=== PATIENT | male | born 1960 | race Caucasian/White ===

== ENCOUNTER → 2017-11-22 | Outpatient (CLI) | payer BC ==
--- NOTE | 2017-11-22 13:32 | XR ---
EXAMINATION TYPE: XR foot complete LT DATE OF EXAM: 11/22/2017 COMPARISON: NONE HISTORY: 57 year-old male left foot pain, dorsolateral pain near the fifth metatarsal for 3 months TECHNIQUE: 3 views FINDINGS: There is some enthesopathy at the base of the fifth metatarsal but no acute fracture seen. Degenerati ve changes are present at the TMT joints. There is either a type II or type III accessory navicular. Moderate sized posterior and plantar calcaneal spurs. Vascular calcifications suggest underlying diab etes and/or chronic kidney disease. IMPRESSION: 1. Some calcifications at the base of the fifth metatarsal at the peroneal insertion. Findings suspec golden to represent enthesopathy. Calcific tendinitis is an alternative possibility. Otherwise, no acute osseous abnormality seen. 2.Osteoarthritic changes within the midfoot and plantar calcaneal spurs.
== END | disposition home or self-care (01) ==
LOC: RADXRMAIN 10:25
PROVIDERS: ATTEND Internal Medicine Geriatric Medicine
DX: M19.072 Primary osteoarthritis, left ankle and foot (principal); M77.32 Calcaneal spur, left foot

== ENCOUNTER 2024-02-25 03:11 | Emergency (ER) | payer BC ==
--- NOTE | 2024-02-25 03:30 | ED ---
General Adult HPI - General Chief complaint: Syncope Stated complaint: Syncopal Time Seen by Provider: 02/25/24 03:15 Source: patient, EMS, RN notes reviewed, old records reviewed Mode of arrival: EMS - History of Present Illness Initial comments: Patient is a 63-year-old male who presents emergency department for syncopal episode. Patient apparently had 2 syncopal episodes. He does note one and is uncertain regarding the other. States he stood up to use the restroom and walked a short distance away. He appeared to have fainted during his urination. He woke up on the ground on his side. No obvious injuries. States he woke up and walked back to the bedroom. There his states he may have passed out again but he is uncertain as he feels like he may have just fallen asleep again. However EMS was called and he presents for further evaluation. He denies any complaints at this time. Denies chest pain or shortness of breath. Denies any head injury, headache, blurry vision, weakness. Denies shortness of breath, fevers, chills, abdominal pain, nausea, vomiting. Has no acute complaints at this time. Denies having any symptoms prior to these episodes. Is not on blood thinners. Presents for further evaluation at this time. Past medical history remarkable for hypertension.Patient does have a history of diabetes and sugars were within acceptable limits. - Related Data Allergies Allergy/AdvReac Type Severity Reaction Status Date / Time No Known Allergies Allergy Verified 02/25/24 03:22 Review of Systems ROS Statement: Those systems with pertinent positive or pertinent negative responses have been documented in the HPI. Review of Systems: CONST: Denies fever EYES: Denies blurry vision ENT: Denies nasal congestion C/V: Denies Chest pain RESP: Denies shortness of breath GI: Denies abdominal pain : Denies dysuria SKIN: Denies rash. MSK: Denies joint pain. NEURO: Denies headache ROS Other: All systems not noted in ROS Statement are negative. Past Medical History Past Medical History: No Reported History History of Any Multi-Drug Resistant Organisms: None Reported Additional Past Surgical History / Comment(s): expolatory surgery from swallowing glass. Smoking Status: Never smoker Past Alcohol Use History: None Reported Past Drug Use History: None Reported General Exam - General Exam Comments Initial Comments: General: Appears in no acute distress. HEAD: Normal with no signs of head trauma. EYES: PERRLA, EOMI, conjunctiva normal, no discharge. Pupils are 3 mm and equal bilaterally. ENT: Hearing grossly intact, normal oropharynx. RESPIRATORY: Clear breath sounds bilaterally. No wheezes, rales, or rhonchi. C/V: Regular rate and rhythm. S1 and S2 auscultated, no edema, peripheral pulses 2+ and intact throughout ABD: Abd is soft, nontender, nondistended EXT: Normal range of motion, no obvious deformity SKIN: No rashes or lesions observed on exposed skin. NEURO: Alert and oriented x 4. Cranial nerves II-XII intact. No focal sensory or strength deficits. NIH is 0. GCS 15. Course Vital Signs 02/25/24 02/25/24 03:12 04:34 Temperature 97.1 F L Pulse Rate 58 L Respiratory 18 Rate Blood Pressure 131/77 Blood Pressure 132/78 [Right Arm Sitting] Blood Pressure 147/75 [Right Arm Standing] Blood Pressure 139/82 [Right Arm Supine] O2 Sat by Pulse 100 Oximetry Medical Decision Making - Medical Decision Making Was pt. sent in by a medical professional or institution (, PA, [employer], urgent care, hospital, or detention...) When possible be specific @ -No Did you speak to anyone other than the patient for history (EMS, parent, family, police, friend...)? What history was obtained from this source @ -No Did you review nursing and triage notes (agree or disagree)? Why? @ -I reviewed and agree with nursing and triage notes Were old charts reviewed (outside hosp., previous admission, EMS record, old EKG, old radiological studies, urgent care reports/EKG's, detention records)? Report findings @ -No old charts were reviewed Differential Diagnosis (chest pain, altered mental status, abdominal pain women, abdominal pain men, vaginal bleeding, weakness, fever, dyspnea, syncope, headache, dizziness, GI bleed, back pain, seizure, CVA, palpatations, mental health, musculoskeletal)? @ -Differential Syncope: Valvular disease, hypertrophic cardiomyopathy, pulmonary embolism, tamponade, tachycardia, bradycardia, [place], hypovolemia, hemorrhage, dissection, anemia, intracranial hemorrhage, seizure, hypoglycemia, carbon monoxide poisoning, this is not meant to be an all-inclusive list. EKG interpreted by me (3pts min.). @ -As above X-rays interpreted by me (1pt min.). @ -Chest x-ray reveals no obvious acute cardiopulmonary process. CT interpreted by me (1pt min.). @ -CT brain reveals no obvious acute intracranial process or injury. Degenerative changes present. U/S interpreted by me (1pt. min.). @ -None done What testing was considered but not performed or refused? (CT, X-rays, U/S, labs)? Why? @ -None What meds were considered but not given or refused? Why? @ -None Did you discuss the management of the patient with other professionals (professionals i.e. , PA, [employer], lab, RT, psych nurse, social security assessor, chip drier, teacher, loans officer, case resource manager)? Give summary @ -No Was smoking cessation discussed for >3mins.? @ -No Was critical care preformed (if so, how long)? @ -No Were there social determinants of health that impacted care today? How? (Homelessness, low income, unemployed, alcoholism, drug addiction, transportation, low edu. Level, literacy, decrease access to med. care, longterm, rehab)? @ -No Was there de-escalation of care discussed even if they declined (Discuss DNR or withdrawal of care, Hospice)? DNR status @ -No What co-morbidities impacted this encounter? (DM, HTN, Smoking, COPD, CAD, Can cer, CVA, ARF, Chemo, Hep., AIDS, mental health diagnosis, sleep apnea, morbid obesity)? @ -None Was patient admitted / discharged? Hospital course, mention meds given and route, prescriptions, significant lab abnormalities, going to OR and other pertinent info. @ -Presents for at least 1 and possibly 2 syncopal episodes at home prior to arrival. Seems to be somewhat related to orthostatic hypotension as well as possible micturition reflex however we will obtain syncopal workup. Did recommend CT brain. Patient was in agreement this plan. He will be symptomatically treated with IV fluids. Currently has no symptoms at all. We will obtain orthostatic vital signs. He was in agreement this plan. EKG shows no signs of acute ischemia.Imaging unremarkable for any acute process. Labs are also unremarkable. Urine is still pending at this time. On reevaluation, I updated the patient. I did offer to wait for the urine but he would like to go home. I would like to observe the patient for at least 2 hours and then ambulate the patient. Orthostatic vital signs are negative. He was in agreement this plan and remains asymptomatic at this time. Patient ambulated without issue and like to leave. I did offer him observation admission however he declines at this time. Recommended strict return precautions as well as follow-up with PCP. He was in agreement with this plan. I instructed the patient to follow up with their PCP in the next 1-3 days. I explained that the patient should return to the emergency department if they experience any worsening symptoms. Strict return precautions were discussed with the patient. The patient expressed understanding of these instructions. I answered all questions that the patient had. The patient was discharged home in good condition with their prescriptions and follow up information. Undiagnosed new problem with uncertain prognosis? @ -No Drug Therapy requiring intensive monitoring for toxicity (Heparin, Nitro, Insulin, Cardizem)? @ -No Were any procedures done? @ -No Diagnosis/symptom? @ -Syncope Acute, or Chronic, or Acute on Chronic? @ -Acute Uncomplicated (without systemic symptoms) or Complicated (systemic symptoms)? @ -Complicated Side effects of treatment? @ -None Exacerbation, Progression, or Severe Exacerbation] @ -No Poses a threat to life or bodily function? @ -Unlikely - Lab Data Result diagrams: 02/25/24 03:32 02/25/24 03:32 Lab Results 02/25/24 02/25/24 02/25/24 Range/Units 03:32 03:32 03:32 WBC 8.0 (3.8-10.6) k/uL RBC 5.26 (4.30-5.90) m/uL Hgb 13.9 (13.0-17.5) gm/dL Hct 42.5 (39.0-53.0) % MCV 80.8 (80.0-100.0) fL MCH 26.5 (25.0-35.0) pg MCHC 32.8 (31.0-37.0) g/dL RDW 13.9 (11.5-15.5) % Plt Count 222 (150-450) k/uL MPV 7.3 Neutrophils % 68 % Lymphocytes % 20 % Monocytes % 5 % Eosinophils % 4 % Basophils % 1 % Neutrophils # 5.5 (1.3-7.7) k/uL Lymphocytes # 1.6 (1.0-4.8) k/uL Monocytes # 0.4 (0-1.0) k/uL Eosinophils # 0.3 (0-0.7) k/uL Basophils # 0.0 (0-0.2) k/uL PT 11.6 (10.0-12.5) sec INR 1.1 (<1.2) APTT 22.3 (22.0-30.0) sec Sodium 137 (137-145) mmol/L Potassium 4.3 (3.5-5.1) mmol/L Chloride 107 (98-107) mmol/L Carbon Dioxide 22 (22-30) mmol/L Anion Gap 8 mmol/L BUN 20 (9-20) mg/dL Creatinine 0.91 (0.66-1.25) mg/dL Est GFR (CKD-EPI)AfAm >90 (>60 ml/min/1.73 sqM) Est GFR (CKD-EPI)NonAf 89 (>60 ml/min/1.73 sqM) Glucose 190 H (74-99) mg/dL Calcium 9.3 (8.4-10.2) mg/dL Magnesium 2.0 (1.6-2.3) mg/dL Total Bilirubin 0.7 (0.2-1.3) mg/dL AST 30 (17-59) U/L ALT 27 (4-49) U/L Alkaline Phosphatase 65 (38-126) U/L Total Protein 6.6 (6.3-8.2) g/dL Albumin 4.1 (3.5-5.0) g/dL - EKG Data -: EKG Interpreted by Me EKG Comments: 12-lead Electrocardiogram Interpretation Note EKG was reviewed and interpreted by myself. 12-lead ECG performed at 0320 is interpreted by me as revealing sinus bradycardia with first-degree AV block at a rate of 55 beats per minute. [place] is normal. NH interval is 219 ms, QRS duration is 105 ms, QTc is 370 ms.. There were no ST or T wave abnormalities to suggest myocardial ischemia or injury. R wave progression across the precordium was satisfactory. By my interpretation this EKG is non-diagnostic for acute ischemia. Disposition Clinical Impression: Syncope Disposition: HOME SELF-CARE Condition: Good Instructions (If sedation given, give patient instructions): Syncope (ED) Is patient prescribed a controlled substance at d/c from ED?: No Referrals: Sp Bolivar MD [Primary Care Provider] - 1-2 days Time of Disposition: 05:31
[2024-02-25] MEDS: SODIUM CHLORIDE 0.9% 1,000 ML IV STA (03:36)
[2024-02-25 04:09] LABS: Basophils % (A) 1 %; Eosinophils # (A) 0.3 k/uL (0-0.7); Eosinophils % (A) 4 %; HCT 42.5 % (39.0-53.0); HGB 13.9 gm/dL (13.0-17.5); Lymphocytes # (A) 1.6 k/uL (1.0-4.8); Lymphocytes % (A) 20 %; MCH 26.5 pg (25.0-35.0); MCHC 32.8 g/dL (31.0-37.0); MCV 80.8 fL (80.0-100.0); Mean Platelet Volume 7.3; Monocytes # (A) 0.4 k/uL (0-1.0); Monocytes % (A) 5 %; Neutrophils # (A) 5.5 k/uL (1.3-7.7); Neutrophils % (A) 68 %; Platelet Count 222 k/uL (150-450); RBC 5.26 m/uL (4.30-5.90); RDW 13.9 % (11.5-15.5)
[2024-02-25 04:18] LABS: Anion Gap 8 mmol/L; Blood Urea Nitrogen 20 mg/dL (9-20); Carbon Dioxide 22 mmol/L (22-30); Chloride 107 mmol/L (98-107); Glucose 190 mg/dL (74-99); Sodium 137 mmol/L (137-145)
[2024-02-25 04:19] LABS: ALT 27 U/L (4-49); African American GFR (CKD) >90 (>60 ml/min/1.73 sqM); Albumin 4.1 g/dL (3.5-5.0); Calcium 9.3 mg/dL (8.4-10.2); Non-African American GFR(CKD) 89 (>60 ml/min/1.73 sqM); Total Bilirubin 0.7 mg/dL (0.2-1.3); Total Protein 6.6 g/dL (6.3-8.2)
[2024-02-25 04:28] LABS: AST 30 U/L (17-59); Alkaline Phosphatase 65 U/L (38-126); Potassium 4.3 mmol/L (3.5-5.1)
[2024-02-25 04:31] VITALS: PULSE 58; RESP 18; TEMP 97.1
[2024-02-25 04:35] LABS: INR 1.1 (<1.2); Partial Thromboplastin Time 22.3 sec (22.0-30.0); Prothrombin Time 11.6 sec (10.0-12.5)
--- NOTE | 2024-02-25 04:45 | XR ---
EXAMINATION TYPE: XR chest 2V DATE OF EXAM: 02/25/2024 COMPARISON: NONE HISTORY: Syncope. TECHNIQUE: Frontal and lateral views of the chest are obtained. FINDINGS: Low lung volumes. There is no focal air space opacity, pleural effusion, or pneumothorax se en. The cardiac silhouette size is within normal limits. Multilevel spurring in the thoracic spine w ith bridging osteophytes. IMPRESSION: No acute cardiopulmonary process.
--- NOTE | 2024-02-25 04:49 | CT ---
EXAMINATION TYPE: CT brain wo con DATE OF EXAM: 02/25/2024 HISTORY: Pt presents to the ED with complaints of a syncopal episode x2 CT DLP: 1168.3 mGycm. Automated Exposure Control for Dose Reduction was Utilized. TECHNIQUE: CT scan of the head is performed without contrast. COMPARISON: None. FINDINGS: There is no acute intracranial hemorrhage or midline shift identified. There is mild diff use ventricular and sulcal prominence consistent with diffuse age-related cerebral atrophy. There is mild low-attenuation in the periventricular white matter consistent with chronic small vessel ischem ic change. Dependent opacity in the left maxillary sinus. The globes are intact bilaterally. IMPRESSION: No acute intracranial hemorrhage or midline shift. There is mild diffuse age-related ce rebral atrophy and chronic small vessel ischemic change noted. Left maxillary sinus disease noted.
[2024-02-25 05:18] VITALS: BP 139/82
== END 2024-02-25 05:36 | disposition home or self-care (01) ==
LOC: EC 03:11
DX: R55 Syncope and collapse (principal)
CPT/HCPCS: 36415; 70450; 71046; 80053; 83735; 85025; 85610; 85730; 93005; 96360; 99285

== ENCOUNTER → 2024-03-27 | Outpatient (CLI) | payer BC ==
[2024-03-27 10:41] LABS: HCT 43.3 % (39.6-50.0); HGB 13.5 g/dL (13.0-17.0); MCH 24.9 pg (27.0-32.0); MCHC 31.2 g/dL (32.0-37.0); MCV 79.9 FL (80.0-97.0); Mean Platelet Volume 9.6 FL (9.5-12.2); NRBC Per 100 WBC 0 X 10*3/uL (0.00-0.01); Platelet Count 225 X 10*3/uL (140-440); RBC 5.42 X 10*6/uL (4.40-5.60); WBC 6.61 X 10*3/uL (4.50-10.00)
[2024-03-27 10:58] LABS: Blood Urea Nitrogen 15.5 mg/dL (9.0-27.0)
[2024-03-27 10:59] LABS: Carbon Dioxide 24.5 mmol/L (21.6-31.8); Chloride 104 mmol/L (96-109); Sodium 140 mmol/L (135-145)
== END | disposition home or self-care (01) ==
LOC: LABWHC1 07:17
PROVIDERS: ATTEND Internal Medicine
DX: Z01.812 Encounter for preprocedural laboratory examination (principal); R94.39 Abnormal result of other cardiovascular function study; R55 Syncope and collapse; R97.20 Elevated prostate specific antigen [PSA]
CPT/HCPCS: 36415; 80051; 82565; 84153; 84520; 85027

== ENCOUNTER → 2024-04-02 | Outpatient (CLI) | payer BC ==
--- NOTE | 2024-04-02 18:12 | CA ---
Transthoracic Echo Report Name: Vira Bauer Age: 63 Gender: M : 1960 Exam Date: 04/02/2024 14:09 Exam Location: [facility] Ht (in): 73 Wt (lb): 250 Ordering Physician: Mike Gregory DO ([id number]) Attending/Referring Phys: Child Welfare Social Worker Camelia Escobar RDCS Procedure CPT: Indications: R94.39 ABN RESULTS [id number] SYNCOPE AND COLLAPSE Cardiac Hx: Technical Quality: Technically difficult study Contrast 1: Definity Total Dose (mL): 2 Contrast 2: Total Dose (mL): MEASUREMENTS (Male / Female) Normal Values 2D ECHO LVOT Diameter 2.2 cm LV Diastolic Volume MOD BP 106.5 cm??? 67 - 155 / 56 - 104 cm??? LV Systolic Volume MOD BP 45.6 cm??? 22 - 58 / 19 - 49 cm??? LV Ejection Fraction MOD BP 57.2 % >= 55 % LV Cardiac Index MOD BP 2189.1 cm???/min???m??? LV Diastolic Volume MOD 4C 106.7 cm??? LV Systolic Volume MOD 4C 48.0 cm??? LV Ejection Fraction MOD 4C 55.0 % LV Cardiac Index MOD 4C 2109.8 cm???/min???m??? LV Diastolic Length 4C 8.2 cm LV Systolic Length 4C 7.2 cm LV Diastolic Volume MOD 2C 107.1 cm??? LV Systolic Volume MOD 2C 42.9 cm??? LV Ejection Fraction MOD 2C 59.9 % LV Cardiac Index MOD 2C 2305.4 cm???/min???m??? LV Diastolic Length 2C 8.2 cm LV Systolic Length 2C 7.3 cm LA Volume 71.8 cm??? 18 - 58 / 22 - 52 cm??? LA Volume Index 29.3 cm???/m??? 16 - 28 cm???/m??? Ascending Aorta Diameter 3.4 cm DOPPLER AV Peak Velocity 128.9 cm/s AV Peak Gradient 6.6 mmHg AV Mean Velocity 98.9 cm/s AV Mean Gradient 4.1 mmHg AV Velocity Time Integral 25.1 cm LVOT Peak Velocity 122.2 cm/s LVOT Peak Gradient 6.0 mmHg LVOT Velocity Time Integral 20.1 cm LVOT Stroke Volume 74.6 cm??? LVOT Stroke Volume Index 31.5 ml/m??? LVOT Cardiac Index 2681.6 cm???/min???m??? AV Area Cont Eq vti 3.0 cm??? AV Area Cont Eq pk 3.5 cm??? MV Area PHT 7.3 cm??? Mitral E Point Velocity 63.9 cm/s Mitral A Point Velocity 96.3 cm/s Mitral E to A Ratio 0.7 MV Deceleration Time 104.1 ms PV Peak Velocity 80.9 cm/s PV Peak Gradient 2.6 mmHg FINDINGS Left Ventricle Left ventricular ejection fraction is estimated at 55-60 %. Left ventricular cavity size normal. Left ventricular wall thickness normal. No obvious regional wall motion abnormalities. Right Ventricle Normal right ventricular size and function. Unable to estimate the right ventricular systolic pressure. Right Atrium Normal right atrial size. Left Atrium Normal LA size Mitral Valve Structurally normal mitral valve. No mitral stenosis, regurgitation or prolapse. Aortic Valve Trileaflet aortic valve. No aortic valve stenosis or regurgitation. Tricuspid Valve Structurally normal tricuspid valve. No tricuspid stenosis, regurgitation or prolapse. Pulmonic Valve Pulmonic valve not well visualized. No pulmonic stenosis. No pulmonic regurgitation. Pericardium No pericardial effusion. Aorta Normal size aortic root and proximal ascending aorta. CONCLUSIONS Left ventricular ejection fraction is estimated at 55-60 %. No obvious regional wall motion abnormalities. Normal RV size and systolic function No significant valvular dysfunction No significant chamber size abnormality Previewed by: Dr Marvin Arrington (Electronically Signed) Final Date: 02 April 2024 18:11
== END | disposition home or self-care (01) ==
LOC: RADECHMAIN 13:57
PROVIDERS: ATTEND Internal Medicine
DX: R94.39 Abnormal result of other cardiovascular function study (principal); R55 Syncope and collapse
CPT/HCPCS: 93306; Q9957

== ENCOUNTER 2024-04-03 11:50 | Day surgery (SDC) | payer BC ==
[2024-04-01 16:16] VITALS: BMI 33.0
[~2024-04-03 11:50] MED LIST: ALPRAZolam 0.25 MG TAB PO PRN; HEPARIN SODIUM,PORCINE (1 ML) 2,500 UNIT in SODIUM CHLORIDE 0.9% 250 ML IRRIGATION PRN; HEPARIN SODIUM,PORCINE 10,000 UNIT in SODIUM CHLORIDE 0.9% 1,000 ML IRRIGATION PRN; NITROGLYCERIN SL TABS 0.4 MG TAB SUBLINGUAL PRN
[2024-04-03] MEDS: SODIUM CHLORIDE 0.9% 1,000 ML IV ONE (12:01)
[2024-04-03] MEDS: ALPRAZolam 0.5 MG TAB PO PRN (12:11)
[2024-04-03] MEDS: ASPIRIN 325 MG TAB PO STA (12:11)
[2024-04-03] MEDS: SODIUM CHLORIDE 0.9% 1,000 ML in EMPTY BAG 1 BAG IV SCH (12:11)
[2024-04-03 12:14] LABS: Glucose,Whole Blood 182 mg/dL (70-110)
[2024-04-03 12:29] VITALS: RESP 16; TEMP 98.1
[2024-04-03] MEDS ORDERED: fentaNYL (PF) 50 MCG/ML 2 ML AMP ONE (12:45)
[2024-04-03] MEDS ORDERED: HEPARIN SODIUM 1,000 UN/ML (10ML VL) ONE (12:45)
[2024-04-03] MEDS: MIDAZOLAM 2 MG/2 ML VIAL IVP ONE (12:56)
[2024-04-03] MEDS: fentaNYL (PF) 50 MCG/ML 2 ML AMP IVP ONE (12:56)
[2024-04-03] MEDS: LIDOCAINE 1% INJ 10MG/ML (20 ML MDV) SQ ONE (13:02)
[2024-04-03] MEDS: VERAPAMIL SYRINGE (5 MG/10 ML) INTRAARTER ONE (13:02)
[2024-04-03] MEDS: HEPARIN SODIUM 1,000 UN/ML (10ML VL) IVP ONE (13:04)
[2024-04-03] MEDS: IOPAMIDOL-370 100ML BTL INJ ONE (13:15)
--- NOTE | 2024-04-03 14:01 | P.CARDCATH ---
Description of Procedure: PROCEDURES PERFORMED: Left heart catheterization, bilateral coronary angiography, ultrasound guided arterial access INDICATION: abnormal stress test CONSENT:I have discussed the risks, benefits and alternative therapies for the above-mentioned procedure and for both sedation/analgesia as well as necessary blood product administration, if indicated, as they pertain to this patient. The patient has indicated understanding and acceptance of the risks and procedures discussed. PROCEDURE: After the risks, benefits and alternatives of the above mentioned procedure explained in detail with the patient, informed consent was obtained. Patient was taken to the catheterization lab and prepped and draped in usual fashion. Ultrasound guidance was used to assess for arterial access. 1% lidocaine was used to anesthetize the right radial artery. A 6-Somali sheath was placed in the right radial artery using modified Seldinger technique and ultrasound guidance. Left coronary angiography was performed with a 5-Somali JL 3.5 catheter and right coronary angiography was performed with a 5-Somali FR5 catheter in various views. A 5-Somali FR5 catheter was inserted into the left ventricle and pressure measurements were obtained. The right radial sheath was removed and a TR band was placed with hemostasis achieved. The patient to lerated the procedure well. Patient was transported back to the post catheterization holding area in stable condition. Conscious Sedation: Patient was monitored under the direct supervision of myself for conscious sedation using Versed and fentanyl for a total duration of 15 minutes HEMODYNAMICS: Ao: 129/71 LV: 132/4, LVEDP 10 SELECTIVE CORONARY ARTERIOGRAPHY: LEFT MAIN: The left main is a large caliber vessel which trifurcates into the LAD,ramus and circumflex. There is 10-20% left main stenosis. LEFT ANTERIOR DESCENDING CORONARY ARTERY: LAD is a large caliber vessel which wraps around to the apex. There is proximal 30-40% LAD stenosis and a mid LAD 20-30% stenosis. There are [id number] collaterals to the RCA. RAMUS INTERMEDIUS: the ramus is a moderate caliber vessel with mild luminal irregularities LEFT CIRCUMFLEX CORONARY ARTERY: Left circumflex is a moderate caliber vessel with a proximal 50-60% stenosis in the circumflex is a small caliber vessel. RIGHT CORONARY ARTERY: The right coronary artery is a large caliber vessel which gives off a PDA and PLV branch and is the dominant vessel. There is tandem 99% stenosis which only gives off and acute marginal branch followed by a 100% stenosis. FINAL IMPRESSION: 1. CAD as described above including 30-40% proximal LAD, 50-60% small caliber circumflex and 100% mid RCA stenosis 2. Normal left sided filling pressures PLAN: 1. Aggressive risk factor modification per most recent ACC/AHA guidelines. 2. Patient having more lightheaded episodes and adjust blood pressure medications. Decrease lisinopril from 20-5 and add metoprolol which she was supposed to have started. Treat RADIATOR TESTER medically.
[2024-04-03 17:41] VITALS: BP 127/69; PULSE 84
== END 2024-04-03 16:39 | disposition home or self-care (01) ==
LOC: CATHCVL 11:50
PROVIDERS: ATTEND Internal Medicine
DX: I25.10 Atherosclerotic heart disease of native coronary artery without angina pectoris (principal)
CPT/HCPCS: 93458; C1769; C1894; J2250; J2001; J3010; J1644; Q9967

== ENCOUNTER 2025-01-04 02:19 | Inpatient (IN) | payer BC ==
[2025-01-04 02:27] LABS: Glucose,Whole Blood 200 mg/dL (70-110)
[2025-01-04] MEDS: SODIUM CHLORIDE 0.9% 500 ML 500 ML IV STA (02:35)
--- NOTE | 2025-01-04 02:40 | ED ---
General Adult HPI - General Chief complaint: Syncope Stated complaint: cardiac Time Seen by Provider: 01/04/25 02:28 Source: patient Mode of arrival: EMS Limitations: no limitations - History of Present Illness Initial comments: Patient is a 64-year-old male with past medical history of diabetes, hypertension, hyperlipidemia presenting today for syncopal episodes. Patient states he felt sweaty and lightheaded so went to use the bathroom. He was on th e toilet having a bowel movement when he syncopized. EMS was called by patient's who arrived while patient was still sitting on toilet, started applying leads to obtain an EKG and patient syncopized a second time. He did not hit his head.He did not have seizure like activity or tongue biting. He was apparently pale sweaty and diaphoretic at the time. He was given 324 mg of aspirin and 500 cc IV fluids prior to arrival. The patient denies any chest pain or shortness of breath. He states that this has happened previously and states he is on too many antihypertensives. He denies dizziness, lightheadedness, abdominal pain, back pain, pain between his shoulder blades, nausea or vomiting, melena, hematochezia. later notes that at that time she took his BP and it was 41/39. - Related Data Home Medications Medication Instructions Recorded Confirmed glyBURIDE/METFORMIN HCL 2 tab PO BID 04/01/24 01/04/25 [Glucovance 5-500 mg] Atorvastatin [Lipitor] 20 mg PO DAILY 01/04/25 01/04/25 Insulin Degludec [Tresiba 55 units SQ HS 01/04/25 01/04/25 Flextouch U-100 Pen] lisinopriL [Zestril] 10 mg PO DAILY 01/04/25 01/04/25 Previous Rx's Medication Instructions Recorded Metoprolol Succinate (ER) [Toprol 25 mg PO DAILY #90 tab 04/03/24 Xl] Allergies Allergy/AdvReac Type Severity Reaction Status Date / Time No Known Allergies Allergy Verified 01/04/25 07:42 Review of Systems ROS Statement: Those systems with pertinent positive or pertinent negative responses have been documented in the HPI. ROS Other: All systems not noted in ROS Statement are negative. Past Medical History Past Medical History: Diabetes Mellitus, Hearing Disorder / Deafness, Hyperlipidemia, Hypertension, Syncope Additional Past Medical History / Comment(s): See Dr Gregory's H&P. "Some difficulty hearing someimes." History of Any Multi-Drug Resistant Organisms: None Reported Additional Past Surgical History / Comment(s): Exploratory surgery from swallowing glass at 10 yrs old. Past Anesthesia/Blood Transfusion Reactions: No Reported Reaction Past Psychological History: No Psychological Hx Reported Smoking Status: Never smoker Past Alcohol Use History: None Reported Past Drug Use History: None Reported - Past Family History Mother Family Medical History: Cancer General Exam - General Exam Comments Initial Comments: PE: CONSTITUTIONAL: No apparent distress, somewhat ill appearing, pale nontoxic SKIN: Cool, damp, no jaundice, hives or petechiae EYES: Pupils are equally round, extraocular movements intact without nystagmus, clear conjunctiva, non-icteric sclera HENT: Normocephalic, atraumatic, moist mucus membranes, oropharynx clear without exudates NECK: , Full range of motion, normal appearance PULMONARY: Clear to auscultation without wheezes, rhonchi, or rales, normal excursion, no accessory muscle use and no stridor CARDIOVASCULAR: Regular rate, rhythm, normal S1 and S2. No appreciated murmurs, rubs or gallops. Strong radial pulses with intact distal perfusion. No lower extremity edema GASTROINTESTINAL: Soft, active bowel sounds throughout, non-tender, non- distended, no palpable masses, no rebound or guarding. No hepatosplenomegaly MUSCULOSKELETAL: Extremities have no gross deformity, no edema, redness, or swelling. No calf swelling NEUROLOGIC:_a/o x 3, GCS 15, normal mentation and speech. Moves all extremities x 4 without motor or sensory deficit, no focal neurologic deficits PSYCHIATRIC:_normal mood and affect, thought process is clear and linear Limitations: no limitations Course Vital Signs 01/04/25 01/04/25 01/04/25 02:20 02:30 02:45 Temperature 97.6 F Pulse Rate 65 62 61 Pulse Rate [ Marketing Analytics Analyst ] Pulse Rate [ Sitting] Pulse Rate [ Standing] Pulse Rate [ Supine] Respiratory 20 20 20 Rate Blood Pressure 153/76 132/60 122/60 Blood Pressure [Right Arm Sitting] Blood Pressure [Right Arm Standing] Blood Pressure [Right Arm Supine] O2 Sat by Pulse 98 98 98 Oximetry 01/04/25 01/04/25 01/04/25 03:30 06:00 07:02 Temperature 98.2 F Pulse Rate 76 96 Pulse Rate [ Marketing Analytics Analyst ] Pulse Rate [ 116 H Sitting] Pulse Rate [ 114 H Standing] Pulse Rate [ 105 H Supine] Respiratory 20 20 20 Rate Blood Pressure 121/63 143/91 Blood Pressure 158/99 [Right Arm Sitting] Blood Pressure 160/103 [Right Arm Standing] Blood Pressure 191/88 [Right Arm Supine] O2 Sat by Pulse 93 L 96 98 Oximetry 01/04/25 01/04/25 01/04/25 08:58 09:04 09:33 Temperature Pulse Rate 156 H 129 H 144 H Pulse Rate [ Marketing Analytics Analyst ] Pulse Rate [ Sitting] Pulse Rate [ Standing] Pulse Rate [ Supine] Respiratory 20 20 20 Rate Blood Pressure 102/76 137/80 Blood Pressure [Right Arm Sitting] Blood Pressure [Right Arm Standing] Blood Pressure [Right Arm Supine] O2 Sat by Pulse 97 97 99 Oximetry 01/04/25 01/04/25 01/04/25 10:25 12:45 13:45 Temperature 98.4 F Pulse Rate 132 H 115 H 94 Pulse Rate [ Marketing Analytics Analyst ] Pulse Rate [ Sitting] Pulse Rate [ Standing] Pulse Rate [ Supine] Respiratory 20 20 18 Rate Blood Pressure 105/74 114/89 133/72 Blood Pressure [Right Arm Sitting] Blood Pressure [Right Arm Standing] Blood Pressure [Right Arm Supine] O2 Sat by Pulse 96 97 95 Oximetry 01/04/25 01/04/25 01/04/25 14:53 16:15 18:00 Temperature Pulse Rate 73 65 61 Pulse Rate [ Marketing Analytics Analyst ] Pulse Rate [ Sitting] Pulse Rate [ Standing] Pulse Rate [ Supine] Respiratory 20 20 20 Rate Blood Pressure 133/69 141/69 119/66 Blood Pressure [Right Arm Sitting] Blood Pressure [Right Arm Standing] Blood Pressure [Right Arm Supine] O2 Sat by Pulse 95 96 98 Oximetry 01/04/25 01/04/25 01/05/25 19:38 23:52 00:00 Temperature 98.2 F Pulse Rate 63 62 Pulse Rate [ 78 Marketing Analytics Analyst ] Pulse Rate [ Sitting] Pulse Rate [ Standing] Pulse Rate [ Supine] Respiratory 18 16 12 Rate Blood Pressure 153/75 116/61 Blood Pressure [Right Arm Sitting] Blood Pressure [Right Arm Standing] Blood Pressure 124/54 [Right Arm Supine] O2 Sat by Pulse 98 96 Oximetry 01/05/25 01/05/2525 04:00 08:57 12:07 Temperature 98.0 F 98 F 98.1 F Pulse Rate 96 68 Pulse Rate [ 84 Marketing Analytics Analyst ] Pulse Rate [ Sitting] Pulse Rate [ Standing] Pulse Rate [ Supine] Respiratory 16 15 16 Rate Blood Pressure 122/58 137/69 Blood Pressure [Right Arm Sitting] Blood Pressure [Right Arm Standing] Blood Pressure 138/62 [Right Arm Supine] O2 Sat by Pulse 96 96 96 Oximetry 01/05/25 14:48 Temperature 98 F Pulse Rate 75 Pulse Rate [ Marketing Analytics Analyst ] Pulse Rate [ Sitting] Pulse Rate [ Standing] Pulse Rate [ Supine] Respiratory 16 Rate Blood Pressure 146/69 Blood Pressure [Right Arm Sitting] Blood Pressure [Right Arm Standing] Blood Pressure [Right Arm Supine] O2 Sat by Pulse 97 Oximetry EKG Findings - EKG Comments: EKG Findings:: Sinus rhythm, rate 66 bpm WV interval 192 ms QT/QTc 377/391 ms, normal axis, question [address] elevation in lead II, 3/2 mm aVF without reciprocal depressions, no Brugada pattern, no hyperacute T wavesCompared to EKG performed on 02/25/2024, does not appear overall unchanged from prior. Repeat EKG was obtained approximately 10 minutes after initial EKG to assess for any evolving changes, overall appears unchanged from initial EKG, ST elevations in lead III does not appear significantly worsen, now does have first-degree AV block with WV interval 3 to 35 ms, otherwise sinus rhythm rate 62 bpm normal QT QTc normal axis Medical Decision Making - Medical Decision Making Was pt. sent in by a medical professional or institution (, PA, [facility], urgent care, hospital, or correction...) When possible be specific @ -No Did you speak to anyone other than the patient for history (EMS, parent, family, police, friend...)? What history was obtained from this source Yes spoke with EMS personel who state they witnessed pt syncopize a second time while sitting on the toilet, pt was hypotensive on their assessment as well, BP ~80/40, they did transmit EKG as they were concerned for STEMI, this transmitted EKG ws reviewed by myself and questionable [address] elevation in lead III, however no recipricol changes or other significant elevations, EKG obtained here upon arrival overall unchanged from transmitted EKG. pt given 500 cc NS by EMS Did you review nursing and triage notes (agree or disagree)? Why? @ -I reviewed and agree with nursing and triage notes Were old charts reviewed (outside hosp., previous admission, EMS record, old EK G, old radiological studies, urgent care reports/EKG's, correction records)? Report findings @ -Medical records reviewed- Differential Diagnosis (chest pain, altered mental status, abdominal pain women, abdominal pain men, vaginal bleeding, weakness, fever, dyspnea, syncope, headache, dizziness, GI bleed, back pain, seizure, CVA, palpatations, mental health, musculoskeletal)? @Differential Syncope: Valvular disease, hypertrophic cardiomyopathy, pulmonary embolism, tamponade, tachycardia, bradycardia, NJ, hypovolemia, hemorrhage, dissection, anemia, seizure, hypoglycemia,\\ this is not meant to be an all-inclusive list. EKG interpreted by me (3pts min.). @ -As above X-rays interpreted by me (1pt min.). Personally reviewed CXR, I see no evidence of cardiomegaly or pneumothorax, appeared to have possible small left pleural effusion however read by radiologist as negative for acute process CT interpreted by me (1pt min.). @ -None done U/S interpreted by me (1pt. min.). @ -None done What testing was considered but not performed or refused? (CT, X-rays, U/S, labs)? Why? @ -None What meds were considered but not given or refused? Why? @ -None Did you discuss the management of the patient with other professionals (professionals i.e. , PA, [facility] [facility], lab, RT, psych nurse, social services analyst, workers compensation claims adjuster, teacher, supervisor dog license officer, manager case)? Give summary @ -No Was smoking cessation discussed for >3mins.? @ -No Was critical care preformed (if so, how long)? @ -No Were there social determinants of health that impacted care today? How? (Homelessness, low income, unemployed, alcoholism, drug addiction, transportation, low edu. Level, literacy, decrease access to med. care, alf, rehab)? @ -No Was there de-escalation of care discussed even if they declined (Discuss DNR or withdrawal of care, Hospice)? @ -No What co-morbidities impacted this encounter? (DM, HTN, Smoking, COPD, CAD, Cancer, CVA, ARF, Chemo, Hep., AIDS, mental health diagnosis, sleep apnea, morbid obesity)? @Hypertension Was patient admitted / discharged? Hospital course, mention meds given and route, prescriptions, significant lab abnormalities, going to OR and other pertinent info. @ -Admission- Patient is a 64-year-old gentleman presenting today for 2 syncopal episodes at home this evening. Patient somewhat ill-appearing on arrival however otherwise vital signs within acceptable limits. Cardiac exam shows no m urmurs rubs or gallops. He currently has no complaints. Patient will be fluid resuscitated, cardiac workup will be obtained. Labs overall reassuring. Patient does feel improved however given multiple episodes syncope w/ unknown cause will admit for further evaluation, cardiology consultation. May need adjustments to antihypertensives. Updated pt to findings and plan. Patient agreeable with POC. Case discussed with Dr. Zamora who kindly accepted patient for admission. Of note, home antihypertensives will be held until further evaluation by primary team and cardiology due to consideration that these may have contributed to patient's syncopal episodes today. Undiagnosed new problem with uncertain prognosis? @ -No Drug Therapy requiring intensive monitoring for toxicity (Heparin, Nitro, Ins ulin, Cardizem)? @ -No Were any procedures done? @ -No Diagnosis/symptom? @Syncope Acute, or Chronic, or Acute on Chronic? @acute Uncomplicated (without systemic symptoms) or Complicated (systemic symptoms)? complicated Side effects of treatment? @ -No Exacerbation, Progression, or Severe Exacerbation? @ -No Poses a threat to life or bodily function? How? (Chest pain, [place], NJ, pneumonia, PE, COPD, DKA, ARF, appy, cholecystitis, CVA, Diverticulitis, Homicidal, Suicidal, threat to staff... and all critical care pts) @Potentially if 2/2 arrhythmia, other underlying cardiac abnormality - Lab Data Result diagrams: 01/08/25 06:06 01/08/25 06:06 Lab Results 01/04/25 01/04/25 01/04/25 Range/Units 02:25 02:25 02:26 WBC 11.0 H (3.8-10.6) k/uL RBC 5.28 (4.30-5.90) m/uL Hgb 13.9 (13.0-17.5) gm/dL Hct 42.0 (39.0-53.0) % MCV 79.5 L (80.0-100.0) fL MCH 26.4 (25.0-35.0) pg MCHC 33.2 (31.0-37.0) g/dL RDW 13.8 (11.5-15.5) % Plt Count 258 (150-450) k/uL MPV 6.7 Neutrophils % 63 % Lymphocytes % 26 % Monocytes % 5 % Eosinophils % 4 % Basophils % 0 % Neutrophils # 6.9 (1.3-7.7) k/uL Lymphocytes # 2.8 (1.0-4.8) k/uL Monocytes # 0.6 (0-1.0) k/uL Eosinophils # 0.4 (0-0.7) k/uL Basophils # 0.0 (0-0.2) k/uL PT (10.0-12.5) sec INR (<1.2) APTT (22.0-30.0) sec D-Dimer (<0.60) mg/L FEU Sodium (137-145) mmol/L Potassium (3.5-5.1) mmol/L Chloride (98-107) mmol/L Carbon Dioxide (22-30) mmol/L Anion Gap mmol/L BUN (9-20) mg/dL Creatinine (0.66-1.25) mg/dL Est GFR (CKD-EPI)AfAm (>60 ml/min/1.73 sqM) Est GFR (CKD-EPI)NonAf (>60 ml/min/1.73 sqM) Glucose (74-99) mg/dL POC Glucose (mg/dL) 200 H (70-110) mg/dL POC Glu Granular Operator ID Ailyn Cantrell Calcium (8.4-10.2) mg/dL Magnesium (1.6-2.3) mg/dL Total Bilirubin (0.2-1.3) mg/dL AST (17-59) U/L ALT (4-49) U/L Alkaline Phosphatase (38-126) U/L Troponin I (0.000-0.034) ng/mL Total Protein (6.3-8.2) g/dL Albumin (3.5-5.0) g/dL TSH 6.760 H (0.465-4.680) mIU/L Free T4 (0.78-2.19) ng/dL Free T3 pg/mL (2.30-4.20) pg/mL 01/04/25 01/04/25 01/04/25 Range/Units 02:26 02:26 02:26 WBC (3.8-10.6) k/uL RBC (4.30-5.90) m/uL Hgb (13.0-17.5) gm/dL Hct (39.0-53.0) % MCV (80.0-100.0) fL MCH (25.0-35.0) pg MCHC (31.0-37.0) g/dL RDW (11.5-15.5) % Plt Count (150-450) k/uL MPV Neutrophils % % Lymphocytes % % Monocytes % % Eosinophils % % Basophils % % Neutrophils # (1.3-7.7) k/uL Lymphocytes # (1.0-4.8) k/uL Monocytes # (0-1.0) k/uL Eosinophils # (0-0.7) k/uL Basophils # (0-0.2) k/uL PT 11.4 (10.0-12.5) sec INR 1.0 (<1.2) APTT 21.0 L (22.0-30.0) sec D-Dimer 0.24 (<0.60) mg/L FEU Sodium 134 L (137-145) mmol/L Potassium 3.9 (3.5-5.1) mmol/L Chloride 101 (98-107) mmol/L Carbon Dioxide 23 (22-30) mmol/L Anion Gap 10 mmol/L BUN 17 (9-20) mg/dL Creatinine 0.91 (0.66-1.25) mg/dL Est GFR (CKD-EPI)AfAm >90 (>60 ml/min/1.73 sqM) Est GFR (CKD-EPI)NonAf 89 (>60 ml/min/1.73 sqM) Glucose 194 H (74-99) mg/dL POC Glucose (mg/dL) (70-110) mg/dL POC Glu Granular Operator ID Calcium 9.4 (8.4-10.2) mg/dL Magnesium 1.7 (1.6-2.3) mg/dL Total Bilirubin 0.5 (0.2-1.3) mg/dL AST 22 (17-59) U/L ALT 22 (4-49) U/L Alkaline Phosphatase 63 (38-126) U/L Troponin I <0.012 (0.000-0.034) ng/mL Total Protein 6.0 L (6.3-8.2) g/dL Albumin 3.9 (3.5-5.0) g/dL TSH (0.465-4.680) mIU/L Free T4 (0.78-2.19) ng/dL Free T3 pg/mL (2.30-4.20) pg/mL 01/04/25 01/04/25 01/04/25 Range/Units 06:53 10:32 18:32 WBC (3.8-10.6) k/uL RBC (4.30-5.90) m/uL Hgb (13.0-17.5) gm/dL Hct (39.0-53.0) % MCV (80.0-100.0) fL MCH (25.0-35.0) pg MCHC (31.0-37.0) g/dL RDW (11.5-15.5) % Plt Count (150-450) k/uL MPV Neutrophils % % Lymphocytes % % Monocytes % % Eosinophils % % Basophils % % Neutrophils # (1.3-7.7) k/uL Lymphocytes # (1.0-4.8) k/uL Monocytes # (0-1.0) k/uL Eosinophils # (0-0.7) k/uL Basophils # (0-0.2) k/uL PT (10.0-12.5) sec INR (<1.2) APTT (22.0-30.0) sec D-Dimer (<0.60) mg/L FEU Sodium (137-145) mmol/L Potassium (3.5-5.1) mmol/L Chloride (98-107) mmol/L Carbon Dioxide (22-30) mmol/L Anion Gap mmol/L BUN (9-20) mg/dL Creatinine (0.66-1.25) mg/dL Est GFR (CKD-EPI)AfAm (>60 ml/min/1.73 sqM) Est GFR (CKD-EPI)NonAf (>60 ml/min/1.73 sqM) Glucose (74-99) mg/dL POC Glucose (mg/dL) 147 H (70-110) mg/dL POC Glu Granular Operator ID Cesar Jacobson Calcium (8.4-10.2) mg/dL Magnesium (1.6-2.3) mg/dL Total Bilirubin (0.2-1.3) mg/dL AST (17-59) U/L ALT (4-49) U/L Alkaline Phosphatase (38-126) U/L Troponin I <0.012 <0.012 (0.000-0.034) ng/mL Total Protein (6.3-8.2) g/dL Albumin (3.5-5.0) g/dL TSH (0.465-4.680) mIU/L Free T4 (0.78-2.19) ng/dL Free T3 pg/mL (2.30-4.20) pg/mL 01/05/25 Range/Units 02:25 WBC (3.8-10.6) k/uL RBC (4.30-5.90) m/uL Hgb (13.0-17.5) gm/dL Hct (39.0-53.0) % MCV (80.0-100.0) fL MCH (25.0-35.0) pg MCHC (31.0-37.0) g/dL RDW (11.5-15.5) % Plt Count (150-450) k/uL MPV Neutrophils % % Lymphocytes % % Monocytes % % Eosinophils % % Basophils % % Neutrophils # (1.3-7.7) k/uL Lymphocytes # (1.0-4.8) k/uL Monocytes # (0-1.0) k/uL Eosinophils # (0-0.7) k/uL Basophils # (0-0.2) k/uL PT (10.0-12.5) sec INR (<1.2) APTT (22.0-30.0) sec D-Dimer (<0.60) mg/L FEU Sodium (137-145) mmol/L Potassium (3.5-5.1) mmol/L Chloride (98-107) mmol/L Carbon Dioxide (22-30) mmol/L Anion Gap mmol/L BUN (9-20) mg/dL Creatinine (0.66-1.25) mg/dL Est GFR (CKD-EPI)AfAm (>60 ml/min/1.73 sqM) Est GFR (CKD-EPI)NonAf (>60 ml/min/1.73 sqM) Glucose (74-99) mg/dL POC Glucose (mg/dL) (70-110) mg/dL POC Glu Granular Operator ID Calcium (8.4-10.2) mg/dL Magnesium (1.6-2.3) mg/dL Total Bilirubin (0.2-1.3) mg/dL AST (17-59) U/L ALT (4-49) U/L Alkaline Phosphatase (38-126) U/L Troponin I (0.000-0.034) ng/mL Total Protein (6.3-8.2) g/dL Albumin (3.5-5.0) g/dL TSH (0.465-4.680) mIU/L Free T4 1.92 (0.78-2.19) ng/dL Free T3 pg/mL 3.10 (2.30-4.20) pg/mL Disposition Clinical Impression: Syncope Disposition: ADMITTED IP TO THIS HOSP Condition: Good
[2025-01-04 02:45] LABS: Basophils % (A) 0 %; Eosinophils # (A) 0.4 k/uL (0-0.7); Eosinophils % (A) 4 %; HGB 13.9 gm/dL (13.0-17.5); Lymphocytes # (A) 2.8 k/uL (1.0-4.8); Lymphocytes % (A) 26 %; MCH 26.4 pg (25.0-35.0); MCHC 33.2 g/dL (31.0-37.0); MCV 79.5 fL (80.0-100.0); Mean Platelet Volume 6.7; Monocytes # (A) 0.6 k/uL (0-1.0); Monocytes % (A) 5 %; Neutrophils # (A) 6.9 k/uL (1.3-7.7); Neutrophils % (A) 63 %; Platelet Count 258 k/uL (150-450); RBC 5.28 m/uL (4.30-5.90); RDW 13.8 % (11.5-15.5)
[2025-01-04 03:04] LABS: Prothrombin Time 11.4 sec (10.0-12.5)
[2025-01-04 03:15] LABS: ALT 22 U/L (4-49); AST 22 U/L (17-59); African American GFR (CKD) >90 (>60 ml/min/1.73 sqM); Albumin 3.9 g/dL (3.5-5.0); Alkaline Phosphatase 63 U/L (38-126); Anion Gap 10 mmol/L; Blood Urea Nitrogen 17 mg/dL (9-20); Calcium 9.4 mg/dL (8.4-10.2); Carbon Dioxide 23 mmol/L (22-30); Chloride 101 mmol/L (98-107); Glucose 194 mg/dL (74-99); Magnesium 1.7 mg/dL (1.6-2.3); Non-African American GFR(CKD) 89 (>60 ml/min/1.73 sqM); Potassium 3.9 mmol/L (3.5-5.1); Sodium 134 mmol/L (137-145); Total Bilirubin 0.5 mg/dL (0.2-1.3)
--- NOTE | 2025-01-04 03:30 | XR ---
EXAM: XR Chest, 2 Views CLINICAL HISTORY: ITS.REASON XR Reason: syncope TECHNIQUE: Frontal and lateral views of the chest. COMPARISON: No relevant prior studies available. FINDINGS: Lungs: No consolidation or mass. Pleural space: No effusion. Heart: cardiomegaly. Bones/joints: No acute findings. IMPRESSION: No acute cardiopulmonary process.
[2025-01-04] MEDS ORDERED: NALOXONE 0.4 MG/ML 1 ML VIAL IV PRN (06:13)
[2025-01-04] MEDS ORDERED: ONDANSETRON 4 MG/2 ML VIAL IVP PRN (06:13)
[2025-01-04] MEDS ORDERED: traMADol 50 MG TAB PO PRN (06:13)
[2025-01-04] MEDS ORDERED: MAG HYDROX/AL HYDROX/SIMETH 30 ML CUP PO PRN (06:13)
[2025-01-04] MEDS ORDERED: MORPHINE SULFATE 4 MG/ML SYRINGE IV PRN (06:13)
[2025-01-04] MEDS ORDERED: ACETAMINOPHEN TAB 325 MG TAB PO PRN (06:13)
[2025-01-04] MEDS ORDERED: CALCIUM CARBONATE 500 MG CHEWABLE PO PRN (06:13)
[2025-01-04] MEDS: lisinopriL 10 MG TAB PO SCH (09:10)
[2025-01-04] MEDS: METOPROLOL SUCCINATE (ER) 25 MG TAB.ER.24H PO SCH (09:13)
[2025-01-04] MEDS: DILTIAZEM 125 MG in SODIUM CHLORIDE 0.9% 100 ML IV SCH (09:28)
[2025-01-04] MEDS: SODIUM CHLORIDE 0.9% 1,000 ML IV SCH ×2 (09:31→09:35)
[2025-01-04] MEDS: FAMOTIDINE 20 MG TAB PO SCH (09:31)
[2025-01-04] MEDS: ATORVASTATIN 20 MG TAB PO SCH (09:31)
[2025-01-04] MEDS: ENOXAPARIN 40 MG/0.4 ML SYRINGE SQ SCH (09:32)
--- NOTE | 2025-01-04 10:57 | P.HPIM ---
History of Present Illness This is a pleasant 64 years old male with past medical history of multiple medical problems including diabetes mellitus and hypertension. Patient presents because of syncope he passed out in his house. Information were obtained with the help of the family member female at bedside. Patient while he was in his bed he was feeling weak clammy and sweaty with paleness. His blood pressure was 41/39 when they checked it. He got up to going to the bathroom to urinate while his entire life he passed out but his family help him to the floor. He stated like for 7 seconds and then he woke up right away with no postictal confusion. No seizure-like activities. Patient denies chest pain or dyspnea or dizziness. He was dizzy yesterday but today is improved. No weakness numbness or tingling. He denies smoking alcohol or illicit drugs. Patient states that he had similar episode about 1 year ago. Currently he feels fine His blood pressure was on the low side on admission currently improved and he is tachycardic with heart rate about 128 but beta-parrish was held Currently he is afebrile. Troponin x 2 are negative, liver enzymes were unremarkable. CBC showing mild leukocytosis. BMP is unremarkable. Orthostatic course positive with blood pressure 191/82 coming down to 160/103 understanding D-dimer was negative at 0.24. EKG showing sinus rhythm at [address]-T changes Chest x-ray is negative for acute process. Currently blood pressure is controlled 118/88 and mildly tachycardic while beta- parrish was discontinued. Also patient was evaluated by skein inspector with recommendation to hold blood pressures for now Review of Systems Review of systems CONSTITUTIONAL: No fever, no malaise, no fatigue. HEENT: No recent visual problems or hearing problems. Denied any sore throat. CARDIOVASCULAR: No orthopnea, PND, no palpitations, no syncope. PULMONARY: No shortness of breath, no cough, no hemoptysis. GASTROINTESTINAL: No diarrhea, no nausea, no vomiting, no abdominal pain. Normoactive bowel sounds. NEUROLOGICAL: No headaches, no weakness, no numbness. HEMATOLOGICAL: Denies any bleeding or petechiae. GENITOURINARY: Denies any burning micturition, frequency, or urgency. MUSCULOSKELETAL/RHEUMATOLOGICAL: Denies any joint pain, swelling, or any muscle pain. ENDOCRINE: Denies any polyuria or polydipsia. Past Medical History Past Medical History: Diabetes Mellitus, Hearing Disorder / Deafness, Hyperlipidemia, Hypertension, Syncope Additional Past Medical History / Comment(s): See Dr Gregory's H&P. "Some difficulty hearing someimes." History of Any Multi-Drug Resistant Organisms: None Reported Additional Past Surgical History / Comment(s): Exploratory surgery from swallowing glass at 10 yrs old. Past Anesthesia/Blood Transfusion Reactions: No Reported Reaction Past Psychological History: No Psychological Hx Reported Smoking Status: Never smoker Past Alcohol Use History: None Reported Past Drug Use History: None Reported - Past Family History Mother Family Medical History: Cancer Medications and Allergies Home Medications Medication Instructions Recorded Confirmed Type glyBURIDE/METFORMIN HCL 2 tab PO BID 04/01/24 01/04/25 History [Glucovance 5-500 mg] Metoprolol Succinate (ER) [Toprol 25 mg PO DAILY #90 tab 04/03/24 01/04/25 Rx Xl] Atorvastatin [Lipitor] 20 mg PO DAILY 01/04/25 01/04/25 History Insulin Degludec [Tresiba 55 units SQ HS 01/04/25 01/04/25 History Flextouch U-100 Pen] lisinopriL [Zestril] 10 mg PO DAILY 01/04/25 01/04/25 History Allergies Allergy/AdvReac Type Severity Reaction Status Date / Time No Known Allergies Allergy Verified 01/04/25 07:42 Physical Exam Vitals: Vital Signs Temp Pulse Pulse Pulse Pulse Resp BP 01/04/25 10:25 132 H 20 105/74 01/04/25 09:33 144 H 20 137/80 01/04/25 09:04 129 H 20 102/76 01/04/25 08:58 156 H 20 01/04/25 07:02 116 H 114 H 105 H 20 01/04/25 06:00 98.2 F 96 20 143/91 01/04/25 03:30 76 20 121/63 01/04/25 02:45 61 20 122/60 01/04/25 02:30 62 20 132/60 01/04/25 02:20 97.6 F 65 20 153/76 BP BP BP Pulse Ox 01/04/25 10:25 96 01/04/25 09:33 99 01/04/25 09:04 97 01/04/25 08:58 97 01/04/25 07:02 158/99 160/103 191/88 98 01/04/25 06:00 96 01/04/25 03:30 93 L 01/04/25 02:45 98 01/04/25 02:30 98 01/04/25 02:20 98 Intake and Output 01/03/25 01/04/25 01/04/25 22:59 06:59 14:59 Other: Weight 111.13 kg GENERAL: The patient is alert and oriented x3, not in any acute distress. Well developed, well nourished. HEENT: Pupils are round and equally reacting to light. EOMI. No scleral icterus. No conjunctival pallor. Normocephalic, atraumatic. No pharyngeal erythema. No thyromegaly. CARDIOVASCULAR: S1 and S2 present. No murmurs, rubs, or gallops. PULMONARY: Chest is clear to auscultation, no wheezing , no crackles. ABDOMEN: Soft, nontender, nondistended, normoactive bowel sounds. No palpable organomegaly. MUSCULOSKELETAL: No joint swelling or deformity. EXTREMITIES: No cyanosis, clubbing, or pedal edema. NEUROLOGICAL: Gross neurological examination did not reveal any focal deficits. SKIN: No rashes. no petechiae. Results CBC & Chem 7: 01/04/25 02:26 01/04/25 02:26 Labs: Abnormal Lab Results - Last 24 Hours (Table) 01/04/25 01/04/25 01/04/25 Range/Units 02: 02: 02:26 WBC 11.0 H (3.8-10.6) k/uL MCV 79.5 L (80.0-100.0) fL APTT (22.0-30.0) sec Sodium (137-145) mmol/L Glucose (74-99) mg/dL POC Glucose (mg/dL) 200 H (70-110) mg/dL Total Protein (6.3-8.2) g/dL TSH 6.760 H (0.465-4.680) mIU/L 01/04/25 01/04/25 Range/Units 02:26 02:26 WBC (3.8-10.6) k/uL MCV (80.0-100.0) fL APTT 21.0 L (22.0-30.0) sec Sodium 134 L (137-145) mmol/L Glucose 194 H (74-99) mg/dL POC Glucose (mg/dL) (70-110) mg/dL Total Protein 6.0 L (6.3-8.2) g/dL TSH (0.465-4.680) mIU/L Assessment and Plan Assessment: Syncope with positive orthostatic most likely 2 over medications with antihypertensive medication which are held now Orthostasis. Associated with hypotension, currently improving Diabetes mellitus Hypertension Hyperlipidemia History of osteoarthritis Hypothyroidism Plan: Hold lisinopril 10 mg and metoprolol 25 mg he was taking at home. Cardiology consult. Labs and medication were reviewed.. Continue same treatment. Continue with symptomatic treatment. Resume home medication. Monitor lytes and vitals. DVT and GI prophylaxis. Further recommendations depends on the clinical course of the patient DVT prophylaxis: Subcutaneous heparin GI Prophylaxis: Pepcid Prognosis is guarded
[2025-01-04 18:33] LABS: Glucose,Whole Blood 147 mg/dL (70-110)
--- NOTE | 2025-01-04 20:59 | P.CRDCN ---
History of Present Illness History of present illness: This is Dr. Ruvalcaba dictating a consult on this patient The patient was interviewed and examined Impression Recurrent SVT, intractable despite beta-blockers/failed beta-parrish therapy Associated with syncope At baseline prolonged NV interval on a small dose of metoprolol succinate of 25 mg daily Terminated with carotid sinus massage on the right side with reinitiation almost immediately Now on IV Cardizem 5 mg/h, to be increased to 10 mg/h Scheduled for an EP study and ablation for Avoid amiodarone, avoid oral beta-blockers or oral Cardizem Treat only with IV Cardizem prior to EP study Known coronary artery disease, 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 Pros and cons discussed HPI Patient admitted with an episode of syncope while sitting on the commode. After very detailed questioning he did admit to some palpitations. The found him ramirez. The symptoms actually began while he was lying in bed and he was sweating profusely. His blood pressure was low. Yet he stood up to go to the bathroom and then collapsed even though he was sitting Last year he had an episode of loss of consciousness. He was actually lying in bed when he lost consciousness Diabetes history, history of coronary artery disease with RELIGION INSTRUCTOR of the RCA by cardiac catheterization. Nonobstructive disease elsewhere Denied any chest discomfort at this time ROS: No fever chills or rigors, no cough, phlegm or expectoration, no nausea, vomiting or diarrhea, no hematuria, dysuria, no musculoskeletal complaints, no strokes or seizures, no skin lesions. EXAMINATION: He is lying flat in bed tachycardic. He underwent carotid sinus massage. His SVT terminated and recurred within 10 seconds Repeat this once again with the exact same effect Heart sounds tachycardic no murmurs No chest pain REVIEW OF LABS, ECG & MEDICAL DATA White count 11,000, hemoglobin 13.9, platelet count 258,000 D-dimer 0.24 Sodium 134 potassium 3.9 BUN 17 creatinine 0.9 TSH 6.8, mildly elevated 3 troponins are normal Past Medical History Past Medical History: Diabetes Mellitus, Hearing Disorder / Deafness, Hyperlipidemia, Hypertension, Syncope Additional Past Medical History / Comment(s): See Dr Gregory's H&P. "Some difficulty hearing someimes." History of Any Multi-Drug Resistant Organisms: None Reported Additional Past Surgical History / Comment(s): Exploratory surgery from swallowing glass at 10 yrs old. Past Anesthesia/Blood Transfusion Reactions: No Reported Reaction Past Psychological History: No Psychological Hx Reported Smoking Status: Never smoker Past Alcohol Use History: None Reported Past Drug Use History: None Reported - Past Family History Mother Family Medical History: Cancer Medications and Allergies Home Medications Medication Instructions Recorded Confirmed Type glyBURIDE/METFORMIN HCL 2 tab PO BID 04/01/24 01/04/25 History [Glucovance 5-500 mg] Metoprolol Succinate (ER) [Toprol 25 mg PO DAILY #90 tab 04/03/24 01/04/25 Rx Xl] Atorvastatin [Lipitor] 20 mg PO DAILY 01/04/25 01/04/25 History Insulin Degludec [Tresiba 55 units SQ HS 01/04/25 01/04/25 History Flextouch U-100 Pen] lisinopriL [Zestril] 10 mg PO DAILY 01/04/25 01/04/25 History Allergies Allergy/AdvReac Type Severity Reaction Status Date / Time No Known Allergies Allergy Verified 01/04/25 07:42 Physical Exam Vitals: Vital Signs Temp Pulse Pulse Pulse Pulse Resp BP 01/04/25 19:38 63 18 153/75 01/04/25 18:00 61 20 119/66 01/04/25 16:15 65 20 141/69 01/04/25 14:53 73 20 133/69 01/04/25 13:45 98.4 F 94 18 133/72 01/04/25 12:45 115 H 20 114/89 01/04/25 10:25 132 H 20 105/74 01/04/25 09:33 144 H 20 137/80 01/04/25 09:04 129 H 20 102/76 01/04/25 08:58 156 H 20 01/04/25 07:02 116 H 114 H 105 H 20 01/04/25 06:00 98.2 F 96 20 143/91 01/04/25 03:30 76 20 121/63 01/04/25 02:45 61 20 122/60 01/04/25 02:30 62 20 132/60 01/04/25 02:20 97.6 F 65 20 153/76 BP BP BP Pulse Ox 01/04/25 19:38 98 01/04/25 18:00 98 01/04/25 16:15 96 01/04/25 14:53 95 01/04/25 13:45 95 01/04/25 12:45 97 01/04/25 10:25 96 01/04/25 09:33 99 01/04/25 09:04 97 01/04/25 08:58 97 01/04/25 07:02 158/99 160/103 191/88 98 01/04/25 06:00 96 01/04/25 03:30 93 L 01/04/25 02:45 98 01/04/25 02:30 98 01/04/25 02:20 98 Intake and Output 01/04/25 01/04/25 01/04/25 06:59 14:59 22:59 Other: Weight 111.13 kg Results 01/04/25 02:26 01/04/25 02:26 Cardiac Enzymes 01/04/25 01/04/25 01/04/25 Range/Units 02:26 02:26 06:53 AST 22 (17-59) U/L Troponin I <0.012 <0.012 (0.000-0.034) ng/mL 01/04/25 Range/Units 10:32 AST (17-59) U/L Troponin I <0.012 (0.000-0.034) ng/mL Coagulation 01/04/25 Range/Units 02:26 PT 11.4 (10.0-12.5) sec APTT 21.0 L (22.0-30.0) sec CBC 01/04/25 Range/Units 02:26 WBC 11.0 H (3.8-10.6) k/uL RBC 5.28 (4.30-5.90) m/uL Hgb 13.9 (13.0-17.5) gm/dL Hct 42.0 (39.0-53.0) % Plt Count 258 (150-450) k/uL Comprehensive Metabolic Panel 01/04/25 Range/Units 02:26 Sodium 134 L (137-145) mmol/L Potassium 3.9 (3.5-5.1) mmol/L Chloride 101 (98-107) mmol/L Carbon Dioxide 23 (22-30) mmol/L BUN 17 (9-20) mg/dL Creatinine 0.91 (0.66-1.25) mg/dL Glucose 194 H (74-99) mg/dL Calcium 9.4 (8.4-10.2) mg/dL AST 22 (17-59) U/L ALT 22 (4-49) U/L Alkaline Phosphatase 63 (38-126) U/L Total Protein 6.0 L (6.3-8.2) g/dL Albumin 3.9 (3.5-5.0) g/dL Current Medications Generic Name Dose Route Start Last Admin Trade Name Freq PRN Reason Stop Dose Admin Acetaminophen 650 mg 01/04/25 06:13 Acetaminophen Tab 325 Mg Tab PO Q6HR PRN Mild Pain or Fever > 100.5 Al Hydroxide/Mg Hydroxide 15 ml 01/04/25 06:13 Mag Hydrox/Al Hydrox/Simeth 30 Ml Cup PO Q6HR PRN Indigestion Atorvastatin Calcium 20 mg 01/04/25 09:00 01/04/25 09:31 Atorvastatin 20 Mg Tab PO 20 mg DAILY JORGE A Administration Calcium Carbonate/Glycine 1,000 mg 01/04/25 06:13 Calcium Carbonate 500 Mg Chewable PO Q4HR PRN Dyspepsia Enoxaparin Sodium 40 mg 01/04/25 09:00 01/04/25 09:32 Enoxaparin 40 Mg/0.4 Ml Syringe SQ Not Given DAILY JORGE A Famotidine 20 mg 01/04/25 09:00 01/04/25 20:39 Famotidine 20 Mg Tab PO 20 mg BID JORGE A Administration Sodium Chloride 1,000 mls @ 20 mls/hr 01/04/25 06:15 01/04/25 09:31 Saline 0.9% IV 75 mls/hr .Q24H JORGE A Administration Diltiazem HCl 125 mg/ Sodium 125 mls @ 5 mls/hr 01/04/25 09:15 01/04/25 09:28 Chloride IV 5 mg/hr .Q24H JORGE A 5 mls/hr Administration 5 MG/HR Sodium Chloride 1,000 mls @ 20 mls/hr 01/04/25 09:45 01/04/25 09:35 Saline 0.9% IV Not Given .Q24H JORGE A Morphine Sulfate 4 mg 01/04/25 06:13 Morphine Sulfate 4 Mg/Ml Syringe IV Q4HR PRN Severe Pain (Scale 7 to 10) Naloxone HCl 0.2 mg 01/04/25 06:13 Naloxone 0.4 Mg/Ml 1 Ml Vial IV Q2M PRN Opioid Reversal Ondansetron HCl 4 mg 01/04/25 06:13 Ondansetron 4 Mg/2 Ml Vial IVP Q8HR PRN Nausea And Vomiting Tramadol HCl 50 mg 01/04/25 06:13 Tramadol 50 Mg Tab PO Q6H PRN Moderate Pain (Scale 4 to 6) Intake and Output 01/04/25 01/04/25 01/04/25 06:59 14:59 22:59 Other: Weight 111.13 kg 01/04/25 02:26 01/04/25 02:26
[2025-01-05 09:52] LABS: Glucose,Whole Blood 141 mg/dL (70-110)
[2025-01-05 11:43] LABS: Glucose,Whole Blood 136 mg/dL (70-110)
[2025-01-05] MEDS: INSULIN LISPRO (HumaLOG) 100 UNIT/ML 10 mL VL SQ SCH (11:59)
[2025-01-05 16:27] LABS: T4, Free (Free Thyroxine) 1.92 ng/dL (0.78-2.19)
[2025-01-05 16:53] LABS: Glucose,Whole Blood 164 mg/dL (70-110)
[2025-01-05 19:59] LABS: Glucose,Whole Blood 138 mg/dL (70-110)
[2025-01-05] MEDS: INSULIN GLARGINE (LANTUS) 100 UNIT/ML SYR SQ SCH (20:35)
--- NOTE | 2025-01-05 23:31 | PN ---
PROGRESS NOTE DATE OF SERVICE: 01/05/2025 SUBJECTIVE: This is a 64-year-old gentleman admitted with recurrent SVT and syncope, is being evaluated by Cardiology for possible EP studies. No chest pain. No palpitation. OBJECTIVE: VITAL SIGNS: Pulse is 75, blood pressure 140/69, respirations 16. CHEST: Clear to auscultation. CARDIOVASCULAR: S1, S2. ABDOMEN: Soft. NERVOUS SYSTEM: Nonfocal. LABORATORY DATA: Reviewed. ASSESSMENT: 1. Recurrent supraventricular tachycardia with syncope for ablation. 2. Elevated TSH. 3. Orthostatics. 4. Diabetes mellitus type 2. 5. Multiple medical issues. RECOMMENDATIONS: Recommend to continue current management and continue symptomatic treatment. Otherwise, repeat labs. Closely follow with Cardiology. Possible EP studies, free T3, and free T4. Further recommendations to follow. MMODL / IJN: [id number] /
[2025-01-06 05:52] LABS: Glucose,Whole Blood 173 mg/dL (70-110)
[2025-01-06 07:52] LABS: Basophils % (A) 0 %; Eosinophils # (A) 0.4 k/uL (0-0.7); Eosinophils % (A) 4 %; HCT 43.9 % (39.0-53.0); Lymphocytes # (A) 1.5 k/uL (1.0-4.8); Lymphocytes % (A) 17 %; MCH 25.7 pg (25.0-35.0); MCHC 31.9 g/dL (31.0-37.0); MCV 80.4 fL (80.0-100.0); Mean Platelet Volume 6.9; Monocytes # (A) 0.4 k/uL (0-1.0); Monocytes % (A) 5 %; Neutrophils # (A) 6.3 k/uL (1.3-7.7); Neutrophils % (A) 72 %; Platelet Count 251 k/uL (150-450); RBC 5.46 m/uL (4.30-5.90); RDW 13.7 % (11.5-15.5); WBC 8.7 k/uL (3.8-10.6)
[2025-01-06 08:03] LABS: African American GFR (CKD) >90 (>60 ml/min/1.73 sqM); Anion Gap 8 mmol/L; Blood Urea Nitrogen 16 mg/dL (9-20); Calcium 8.9 mg/dL (8.4-10.2); Carbon Dioxide 23 mmol/L (22-30); Chloride 104 mmol/L (98-107); Glucose 167 mg/dL (74-99); Non-African American GFR(CKD) >90 (>60 ml/min/1.73 sqM); Potassium 4.2 mmol/L (3.5-5.1); Sodium 135 mmol/L (137-145)
[2025-01-06 11:23] LABS: Glucose,Whole Blood 186 mg/dL (70-110)
--- NOTE | 2025-01-06 14:24 | P.PN ---
Subjective HISTORY OF PRESENT ILLNESS: Patient examined this morning at the bedside. Patient currently denies chest pain or pressure. He denies shortness of breath. Telemetry reveals sinus mechanism. Vital signs are stable. PHYSICAL EXAM: VITAL SIGNS: Reviewed. GENERAL: Well-developed in no acute distress. NECK: Supple. No JVD or thyromegaly LUNGS: Respirations even and unlabored. Lungs essentially clear to auscultation bilaterally. HEART: Regular rate and rhythm. S1 and S2 heard. EXTREMITIES: Normal range of motion. No clubbing or cyanosis. Peripheral pulses intact. 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 Ruvalcaba Further recommendations pending patient course Nurse practitioner note has been reviewed by physician. Signing provider agrees with the documented findings, assessment, and plan of care documented by MEDICAL TERRITORY MANAGER as a scribe. Objective - Vital Signs Vital signs: Vital Signs Temp 98.1 F 01/06/25 08:00 Pulse 84 01/06/25 14:00 Resp 16 01/06/25 14:00 BP 171/84 01/06/25 12:34 Pulse Ox 97 01/06/25 12:34 FiO2 Intake & Output 01/05/25 01/06/25 01/06/25 18:59 06:59 18:59 Intake Total 116.417 99.583 20 Balance 116.417 99.583 20 Weight 111.13 kg 109.5 kg Intake: IV 20 Invasive Line 2 20 Intake, IV Titration 116.417 99.583 Amount Diltiazem 125 mg In 116.417 99.583 Sodium Chloride 0.9% 100 ml @ 5 MG/HR 5 mls/hr IV .Q24H [facility] Rx#:[id number] Other: Voiding Method Toilet # Voids 1 1 - Labs CBC & Chem 7: 01/06/25 06:31 01/06/25 06:31 Labs: Abnormal Lab Results - Last 24 Hours (Table) 01/05/25 01/05/25 01/06/25 Range/Units 16:51 19:57 05:50 Sodium (137-145) mmol/L Glucose (74-99) mg/dL POC Glucose (mg/dL) 164 H 138 H 173 H (70-110) mg/dL 01/06/25 01/06/25 Range/Units 06:31 11:22 Sodium 135 L (137-145) mmol/L Glucose 167 H (74-99) mg/dL POC Glucose (mg/dL) 186 H (70-110) mg/dL
[2025-01-06 16:36] LABS: Glucose,Whole Blood 144 mg/dL (70-110)
[2025-01-06 21:03] LABS: Glucose,Whole Blood 178 mg/dL (70-110)
--- NOTE | 2025-01-07 01:58 | PN ---
PROGRESS NOTE DATE OF SERVICE: 01/06/2025 SUBJECTIVE: This is a 64-year-old gentleman admitted with recurrent supraventricular tachycardia, and syncope, is awaiting Cardiology evaluation. No chest pain. No palpitation. OBJECTIVE: VITAL SIGNS: Pulse is 67, blood pressure 165/67, respirations 16. CHEST: Clear to auscultation. CARDIOVASCULAR: S1, S2. ABDOMEN: Soft. LABORATORY DATA: Reviewed. ASSESSMENT: 1. Recurrent supraventricular tachycardia with syncope for EP studies and possible ablation. 2. Elevated TSH. 3. Orthostatics. 4. Diabetes mellitus, type 2. 5. Multiple medical issues. RECOMMENDATIONS: Recommend to continue current management and continue symptomatic treatment. Otherwise, closely follow with Cardiology. Continue with Cardizem. Free T3 and T4 are normal. The patient might have sick euthyroid syndrome and further recommendations to follow. MMODL / IJN: [id number] /
[2025-01-07 06:24] LABS: Glucose,Whole Blood 220 mg/dL (70-110)
[2025-01-07 07:12] LABS: Basophils % (A) 1 %; Eosinophils # (A) 0.3 k/uL (0-0.7); Eosinophils % (A) 4 %; HCT 41.9 % (39.0-53.0); HGB 14.2 gm/dL (13.0-17.5); Lymphocytes # (A) 1.4 k/uL (1.0-4.8); Lymphocytes % (A) 17 %; MCH 26.9 pg (25.0-35.0); MCHC 33.8 g/dL (31.0-37.0); MCV 79.5 fL (80.0-100.0); Mean Platelet Volume 7.1; Monocytes # (A) 0.5 k/uL (0-1.0); Monocytes % (A) 6 %; Neutrophils # (A) 5.7 k/uL (1.3-7.7); Neutrophils % (A) 70 %; Platelet Count 221 k/uL (150-450); RBC 5.27 m/uL (4.30-5.90); RDW 13.7 % (11.5-15.5); WBC 8.1 k/uL (3.8-10.6)
[2025-01-07 07:27] LABS: African American GFR (CKD) >90 (>60 ml/min/1.73 sqM); Anion Gap 10 mmol/L; Blood Urea Nitrogen 12 mg/dL (9-20); Calcium 8.9 mg/dL (8.4-10.2); Carbon Dioxide 21 mmol/L (22-30); Chloride 104 mmol/L (98-107); Glucose 203 mg/dL (74-99); Non-African American GFR(CKD) >90 (>60 ml/min/1.73 sqM); Potassium 4.3 mmol/L (3.5-5.1); Sodium 135 mmol/L (137-145)
[2025-01-07 11:17] LABS: Glucose,Whole Blood 141 mg/dL (70-110)
[2025-01-07 15:36] LABS: Glucose,Whole Blood 136 mg/dL (70-110)
--- NOTE | 2025-01-07 16:22 | CA ---
Transthoracic Echo Report Name: Vira Bauer Age: 64 Gender: M : 1960 Exam Date: 01/06/2025 14:55 Exam Location: [place] [facility] Ht (in): 74 Wt (lb): 241 Ordering Physician: Dorene Sharp Attending/Referring Phys: [id number], Lila Sales Floor Team Leader Lara Aponte, PAMELA Procedure CPT: Indications: syncope, lv function, SVT Cardiac Hx: Technical Quality: Poor, Technically difficult study Contrast 1: Definity Total Dose (mL): 2 Contrast 2: Total Dose (mL): MEASUREMENTS (Male / Female) Normal Values 2D ECHO LV Diastolic Diameter PLAX 4.7 cm 4.2 - 5.9 / 3.9 - 5.3 cm LV Systolic Diameter PLAX 3.6 cm IVS Diastolic Thickness 1.0 cm 0.6 - 1.0 / 0.6 - 0.9 cm LVPW Diastolic Thickness 1.0 cm 0.6 - 1.0 / 0.6 - 0.9 cm LV Relative Wall Thickness 0.4 RV Internal Dim ED PLAX 2.8 cm LA Volume 64.2 cm??? 18 - 58 / 22 - 52 cm??? LA Volume Index 26.6 cm???/m??? 16 - 28 cm???/m??? M-MODE Aortic Root Diameter MM 3.7 cm LA Systolic Diameter MM 4.5 cm LA Ao Ratio MM 1.2 AV Cusp Separation MM 2.2 cm DOPPLER MV Area PHT 2.5 cm??? Mitral E Point Velocity 68.6 cm/s Mitral A Point Velocity 81.6 cm/s Mitral E to A Ratio 0.8 MV Deceleration Time 308.3 ms TR Peak Velocity 198.3 cm/s TR Peak Gradient 15.7 mmHg Right Ventricular Systolic Press 25.7 mmHg FINDINGS Left Ventricle Left ventricular ejection fraction is estimated at 45-50%. Left ventricular cavity size normal. Mildly increased left ventricular wall thickness. Mildly reduced global left ventricular systolic function. Right Ventricle Right ventricle not well visualized. Right Atrium Mild right atrial dilatation. Left Atrium Mildly increased left atrial volume. Mitral Valve Structurally normal mitral valve. Trace to mild mitral regurgitation. No mitral stenosis. Aortic Valve Trileaflet aortic valve. No aortic valve stenosis or regurgitation. Tricuspid Valve Structurally normal tricuspid valve. Mild tricuspid regurgitation. No tricuspid stenosis. Pulmonic Valve Structurally normal pulmonic valve. Trace pulmonic regurgitation.no pulmonic stenosis. Pericardium No pericardial or pleural effusion. Aorta Normal size aortic root and proximal ascending aorta. CONCLUSIONS Indication: Syncope, recurrent incessant SVT In sinus rhythm left ventricular systolic function is mildly reduced with mild apical hypokinesis Previewed by: Dr. Rodney Ruvalcaba MD (Electronically Signed) Final Date: 07 January 2025 16:21
[2025-01-07] MEDS ORDERED: fentaNYL (PF) 50 MCG/ML 2 ML AMP ONE (16:46)
[2025-01-07] MEDS ORDERED: ISOPROTERENOL 250 MCG/1.25 ML SYR IV ONE (16:46)
[2025-01-07] MEDS ORDERED: MIDAZOLAM 2 MG/2 ML VIAL ONE (16:46)
[2025-01-07] MEDS: IV FLUID CONTINUATION 1,000 ML IV ONE (16:46)
[2025-01-07] MEDS: LIDOCAINE 1% INJ 10MG/ML (20 ML MDV) SQ ONE (17:23)
[2025-01-07] MEDS: ROPIVACAINE 5MG/ML 20ML VIAL MISCELLANE ONE (17:27)
[2025-01-07] MEDS: HEPARIN SODIUM (1,000 UNIT/ML) 1,000 UNIT in SODIUM CHLORIDE 0.9% 1,000 ML IRRIGATION ONE (18:31)
[2025-01-07] MEDS: ALTEPLASE 2 MG VIAL (CATHFLO) MISCELLANE ONE (19:32)
[2025-01-07] MEDS ORDERED: ACETAMINOPHEN TAB 325 MG TAB PO PRN (20:11)
--- NOTE | 2025-01-07 20:16 | P.EPPROC ---
- EP Procedure Note Electrophysiology Procedure Note: Diagnostic EP study performed SVT induced on Isopril with pacing maneuvers AV reena reentry confirmed 3D electroanatomic mapping performed Fast pathway identified and tagged Slow pathway identified and tagged However on account of technical issues that developed subsequently, RF ablation could not be performed There were the patient is being scheduled for ablation on Saturday The groins have been sealed with a Mynx device. The femoral veins can be accessed once again on Saturday The patient is in incessant SVT Plan Continue IV Cardizem only 5 mg an hour No amiodarone No metoprolol No oral medications No digoxin All these medications will interfere with the EP study On Saturday, Cardizem drip should be stopped at 8:00 in the morning
--- NOTE | 2025-01-07 21:01 | PN ---
PROGRESS NOTE DATE OF SERVICE: 01/07/2025 SUBJECTIVE: This is a 64-year-old gentleman with a past medical history of multiple medical problems with significant supraventricular tachycardia, slated to have EP studies today. No chest pain, no palpitation. PHYSICAL EXAMINATION: VITAL SIGNS: Pulse is 65, blood pressure 161/80, respirations 20. HEENT: Conjunctivae normal. CARDIOVASCULAR: S1, S2. ABDOMEN: Soft. NERVOUS SYSTEM: Nonfocal. LABORATORY DATA: Reviewed. ASSESSMENT: 1. Recurrent supraventricular tachycardia and syncope for EP studies and possible ablation. 2. Elevated TSH. 4. Diabetes mellitus type 2. 5. Multiple medical issues. RECOMMENDATIONS: Recommended to continue with current management, continue with symptomatic treatment and repeat labs. Otherwise, I would recommend follow closely with Cardiology. EP studies. Prognosis is guarded. Further recommendations to follow. MMODL / IJN: [id number] / MTDD
[2025-01-07] MEDS: ACETAMINOPHEN IV (For NPO) 1,000 MG in EMPTY BAG 1 BAG IVPB ONE (21:02)
[2025-01-07] MEDS: SODIUM CHLORIDE 0.9% 1,000 ML IV SCH (21:35)
[2025-01-08 05:49] LABS: Glucose,Whole Blood 150 mg/dL (70-110)
[2025-01-08 07:19] LABS: African American GFR (CKD) >90 (>60 ml/min/1.73 sqM); Anion Gap 7 mmol/L; Blood Urea Nitrogen 14 mg/dL (9-20); Calcium 8.7 mg/dL (8.4-10.2); Carbon Dioxide 22 mmol/L (22-30); Chloride 106 mmol/L (98-107); Glucose 149 mg/dL (74-99); Non-African American GFR(CKD) >90 (>60 ml/min/1.73 sqM); Potassium 4.1 mmol/L (3.5-5.1); Sodium 135 mmol/L (137-145)
[2025-01-08 08:38] LABS: HCT 44.2 % (39.0-53.0); HGB 13.6 gm/dL (13.0-17.5); Hypochromasia Slight; MCH 26.2 pg (25.0-35.0); MCHC 30.9 g/dL (31.0-37.0); Platelet Count 210 k/uL (150-450); WBC 8.1 k/uL (3.8-10.6)
[2025-01-08 10:41] LABS: Band Neutrophils % 1 %; Eosinophils # (M) 0.24 k/uL (0-0.7); Lymphocytes # (M) 1.22 k/uL (1.0-4.8); Monocytes # (M) 0.24 k/uL (0-1.0); Neutrophils % (M) 78 %; Nucleated Red Blood Cells 0 /100 WBC (0-0); Total Cells Counted 100
[2025-01-08 11:33] LABS: Glucose,Whole Blood 195 mg/dL (70-110)
--- NOTE | 2025-01-08 12:00 | P.PN ---
Subjective HISTORY OF PRESENT ILLNESS: Patient examined this morning at the bedside. Patient currently denies chest pain or pressure. He denies shortness of breath. Telemetry reveals sinus mechanism. Vital signs are stable. 01/08/2025 Patient underwent EP study yesterday revealing SVT. However, there were technical issues and RF ablation could not be performed. This has been rescheduled for Saturday. The patient has been restarted on IV Cardizem. Patient currently denies chest pain or pressure. He denies shortness of breath. Vital signs are stable. PHYSICAL EXAM: VITAL SIGNS: Reviewed. GENERAL: Well-developed in no acute distress. NECK: Supple. No JVD or thyromegaly LUNGS: Respirations even and unlabored. Lungs essentially clear to auscultation bilaterally. HEART: Regular rate and rhythm. S1 and S2 heard. EXTREMITIES: Normal range of motion. No clubbing or cyanosis. Peripheral pulses intact. No lower extremity edema ASSESSMENT: Recurrent SVT Syncope Coronary artery disease with known KNIFE EDGER of the RCA and nonobstructive disease in the LAD and circumflex Diabetes Obesity: BMI 31.0 PLAN: No oral amiodarone, oral beta-blockers, digoxin, or oral calcium channel blockers Continue IV Cardizem Add lisinopril 10mg daily Patient scheduled for ablation on Saturday, January 11, [address] Ruvalcaba Further recommendations pending patient course Nurse practitioner note has been reviewed by physician. Signing provider agrees with the documented findings, assessment, and plan of care documented by NAPPER FIXER as a scribe. Objective - Vital Signs Vital signs: Vital Signs Temp 98.6 F 01/08/25 03:37 Pulse 76 01/08/25 03:37 Resp 18 01/08/25 03:37 BP 144/73 01/08/25 03:37 Pulse Ox 96 01/08/25 03:37 FiO2 Intake & Output 01/07/25 01/08/25 01/08/25 18:59 06:59 18:59 Intake Total 718.583 22.5 Balance 718.583 22.5 Weight 107.6 kg Intake: IV 710 22.5 Invasive Line 2 20 20 Intake, IV Titration 8.583 Amount Diltiazem 125 mg In 8.583 Sodium Chloride 0.9% 100 ml @ 5 MG/HR 5 mls/hr IV .Q24H [facility] Rx#:[id number] Other: Voiding Method Toilet Toilet # Voids 2 0 - Labs CBC & Chem 7: 01/08/25 06:06 01/08/25 06:06 Labs: Abnormal Lab Results - Last 24 Hours (Table) 01/07/25 01/07/25 01/08/25 Range/Units 11:15 15:33 05:47 Sodium (137-145) mmol/L Glucose (74-99) mg/dL POC Glucose (mg/dL) 141 H 136 H 150 H (70-110) mg/dL 01/08/25 Range/Units 06:06 Sodium 135 L (137-145) mmol/L Glucose 149 H (74-99) mg/dL POC Glucose (mg/dL) (70-110) mg/dL
[2025-01-08] MEDS: lisinopriL 10 MG TAB PO SCH (12:06)
[2025-01-08] MEDS: SENNOSIDES 8.6 MG TAB PO SCH (12:06)
[2025-01-08] MEDS ORDERED: SENNOSIDES 8.6 MG TAB PO PRN (15:27)
[2025-01-08 16:14] LABS: Glucose,Whole Blood 172 mg/dL (70-110)
[2025-01-08 19:44] LABS: Glucose,Whole Blood 167 mg/dL (70-110)
[2025-01-08] MEDS: DOCUSATE 100 MG CAP PO SCH (20:52)
--- NOTE | 2025-01-09 01:49 | PN ---
PROGRESS NOTE DATE OF SERVICE: 01/08/2025 SUBJECTIVE: This is a 64-year-old gentleman, who was admitted with recurrent supraventricular tachycardia, is on Cardizem drip at this time. The patient is slated to have procedure on Saturday. No chest pain, no palpitation. PHYSICAL EXAMINATION: VITAL SIGNS: Pulse 73, blood pressure 154/76, respirations 18. CHEST: Clear to auscultation. CARDIOVASCULAR: S1, S2 ABDOMEN: Soft. LABORATORY DATA: Reviewed. ASSESSMENT: 1. Recurrent supraventricular tachycardia with syncope for EP studies and possible ablation date. 3. Diabetes mellitus type 2. 4. Multiple medical issues. RECOMMENDATIONS AND DISCUSSION: Recommended to continue with current management, continue with symptomatic treatment otherwise. At this time, I would recommend to continue the Cardizem. Closely follow up with Cardiology. Further workup on Saturday. Further recommendations to follow. RACHAEL / CALIN: [id number] / MTDD
[2025-01-09 05:47] LABS: Glucose,Whole Blood 155 mg/dL (70-110)
[2025-01-09 11:18] LABS: Glucose,Whole Blood 156 mg/dL (70-110)
[2025-01-09 16:07] LABS: Glucose,Whole Blood 165 mg/dL (70-110)
[2025-01-09 19:54] LABS: Glucose,Whole Blood 175 mg/dL (70-110)
--- NOTE | 2025-01-09 22:52 | P.PN ---
Subjective Progress Note Date: 01/09/25 HISTORY OF PRESENT ILLNESS: Patient examined this morning at the bedside. Patient currently denies chest pain or pressure. He denies shortness of breath. Telemetry reveals sinus mechanism. Vital signs are stable. 01/08/2025 Patient underwent EP study yesterday revealing SVT. However, there were tech nical issues and RF ablation could not be performed. This has been rescheduled for Saturday. The patient has been restarted on IV Cardizem. Patient currently denies chest pain or pressure. He denies shortness of breath. Vital signs are stable. 01/09/2025 No new cardiovascular events Blood pressure is better controlled on lisinopril Plan for EP study on Saturday PHYSICAL EXAM: VITAL SIGNS: Reviewed. GENERAL: Well-developed in no acute distress. NECK: Supple. No JVD or thyromegaly LUNGS: Respirations even and unlabored. Lungs essentially clear to auscultation bilaterally. HEART: Regular rate and rhythm. S1 and S2 heard. EXTREMITIES: Normal range of motion. No clubbing or cyanosis. Peripheral pulses intact. 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 Ruvalcaba Further recommendations pending patient course Objective - Vital Signs Vital signs: Vital Signs Temp 98.1 F 01/09/25 20:00 Pulse 68 01/09/25 20:00 Resp 18 01/09/25 20:00 BP 153/79 01/09/25 20:00 Pulse Ox 97 01/09/25 20:00 FiO2 Intake & Output 01/09/25 01/09/25 01/10/25 06:59 18:59 06:59 Intake Total 130 1806 10 Balance 130 1806 10 Weight 107.4 kg Intake: IV 10 10 0.9 10 10 Oral 120 1806 Other: Voiding Method Toilet Toilet Toilet # Voids 1 1 # Bowel Movements 1 - Labs CBC & Chem 7: 01/08/25 06:06 01/08/25 06:06 Labs: Abnormal Lab Results - Last 24 Hours (Table) 01/09/25 01/09/25 01/09/25 Range/Units 05:45 11:16 16:04 POC Glucose (mg/dL) 155 H 156 H 165 H (70-110) mg/dL 01/09/25 Range/Units 19:53 POC Glucose (mg/dL) 175 H (70-110) mg/dL
--- NOTE | 2025-01-10 00:50 | PN ---
PROGRESS NOTE DATE OF SERVICE: 01/09/2025 SUBJECTIVE: This is a 64-year-old gentleman, admitted with recurrent supraventricular tachycardia and he is slated to undergo EP studies on Saturday. No chest pain, no palpitation. PHYSICAL EXAMINATION: VITAL SIGNS: Pulse is 67, blood pressure 140/60, respirations 16. CHEST: Clear to auscultation. ABDOMEN: Soft. LABORATORY DATA: Reviewed. ASSESSMENT: 1. Recurrence of supraventricular tachycardia and syncope for EP studies. 2. Diabetes mellitus type 2. 3. Multiple medical issues. RECOMMENDATIONS: Recommended to continue with current management, continue with symptomatic treatment. Continue with monitoring of blood sugars. EP study by Cardiology. Further recommendations to follow. MMODL / IJN: [id number] /
[2025-01-10 05:49] LABS: Glucose,Whole Blood 149 mg/dL (70-110)
[2025-01-10 11:14] LABS: Glucose,Whole Blood 113 mg/dL (70-110)
--- NOTE | 2025-01-10 13:33 | P.PN ---
Subjective Progress Note Date: 01/10/25 HISTORY OF PRESENT ILLNESS: Patient examined this morning at the bedside. Patient currently denies chest pain or pressure. He denies shortness of breath. Telemetry reveals sinus mechanism. Vital signs are stable. 01/08/2025 Patient underwent EP study yesterday revealing SVT. However, there were tech nical issues and RF ablation could not be performed. This has been rescheduled for Saturday. The patient has been restarted on IV Cardizem. Patient currently denies chest pain or pressure. He denies shortness of breath. Vital signs are stable. 01/09/2025 No new cardiovascular events Blood pressure is better controlled on lisinopril Plan for EP study on Saturday01/10/2025 Doing well, no new cardiovascular complaints at this time Blood pressure stable PHYSICAL EXAM: VITAL SIGNS: Reviewed. GENERAL: Well-developed in no acute distress. NECK: Supple. No JVD or thyromegaly LUNGS: Respirations even and unlabored. Lungs essentially clear to auscultation bilaterally. HEART: Regular rate and rhythm. S1 and S2 heard. EXTREMITIES: Normal range of motion. No clubbing or cyanosis. Peripheral pulse s intact. 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 Ruvalcaba Further recommendations pending patient course Objective - Vital Signs Vital signs: Vital Signs Temp 98.2 F 01/10/25 11:33 Pulse 65 01/10/25 13:02 Resp 14 01/10/25 13:02 BP 153/82 01/10/25 11:33 Pulse Ox 97 01/10/25 11:33 FiO2 Intake & Output 01/09/25 01/10/25 01/10/25 18:59 06:59 18:59 Intake Total 1806 10 480 Output Total 2 Balance 1806 10 478 Weight 107.9 kg Intake: IV 10 0.9 10 Oral 1806 480 Output: Stool 2 Other: Voiding Method Toilet Toilet Toilet # Voids 2 # Bowel Movements 1 - Labs CBC & Chem 7: 01/08/25 06:06 01/08/25 06:06 Labs: Abnormal Lab Results - Last 24 Hours (Table) 01/09/25 01/09/25 01/10/25 Range/Units 16:04 19:53 05:48 POC Glucose (mg/dL) 165 H 175 H 149 H (70-110) mg/dL 01/10/25 Range/Units 11:12 POC Glucose (mg/dL) 113 H (70-110) mg/dL
[2025-01-10 15:53] LABS: Glucose,Whole Blood 165 mg/dL (70-110)
[2025-01-10 19:51] LABS: Glucose,Whole Blood 133 mg/dL (70-110)
[2025-01-11 05:56] LABS: Glucose,Whole Blood 160 mg/dL (70-110)
--- NOTE | 2025-01-11 06:27 | PN ---
PROGRESS NOTE DATE OF SERVICE: 01/10/2025 SUBJECTIVE: This is a 64-year-old gentleman admitted with recurrent supraventricular tachycardia, slated for EP study tomorrow. No chest pain. No palpitation. OBJECTIVE: VITAL SIGNS: Pulse 71, blood pressure 172/76, respirations 16. CHEST: Clear to auscultation. CARDIOVASCULAR: S1, S2. ABDOMEN: Soft. LABORATORY DATA: Reviewed. ASSESSMENT: 1. Recurrence of supraventricular tachycardia for EP studies. 2. Diabetes mellitus type 2. 3. Hypertension. 4. Multiple medical issues. RECOMMENDATIONS: Recommended to continue current medications and continue symptomatic treatment. Follow closely with Cardiology. EP studies tomorrow. Further recommendations to follow. MMODL / IJN: [id number] /
[2025-01-11 06:54] LABS: African American GFR (CKD) >90 (>60 ml/min/1.73 sqM); Anion Gap 11 mmol/L; Blood Urea Nitrogen 12 mg/dL (9-20); Calcium 9.6 mg/dL (8.4-10.2); Carbon Dioxide 28 mmol/L (22-30); Chloride 99 mmol/L (98-107); Glucose 139 mg/dL (74-99); Non-African American GFR(CKD) 88 (>60 ml/min/1.73 sqM); Potassium 4.2 mmol/L (3.5-5.1); Sodium 138 mmol/L (137-145)
[2025-01-11] MEDS: IV FLUID CONTINUATION 1,000 ML IV ONE (08:42)
[2025-01-11 08:51] LABS: Glucose,Whole Blood 136 mg/dL (70-110)
[2025-01-11] MEDS ORDERED: PROPOFOL 10 MG/ML 20 ML VIAL IV ONE (10:15)
[2025-01-11] MEDS ORDERED: fentaNYL (PF) 50 MCG/ML 2 ML AMP ONE (10:15)
[2025-01-11] MEDS ORDERED: MIDAZOLAM 2 MG/2 ML VIAL ONE (10:15)
[2025-01-11] MEDS ORDERED: HEPARIN SODIUM,PORCINE 5,000 UNIT/ML 1 ML VIAL ONE (10:15)
[2025-01-11] MEDS: LIDOCAINE 1% INJ 10MG/ML (20 ML MDV) SQ ONE (10:47)
[2025-01-11] MEDS: HEPARIN SODIUM,PORCINE 10,000 UNIT in SODIUM CHLORIDE 0.9% 1,000 ML IRRIGATION ONE (10:47)
[2025-01-11] MEDS: ROPIVACAINE 5 MG/ML 30 ML VIAL MISCELLANE ONE (10:47)
[2025-01-11] MEDS: HEPARIN SODIUM (1,000 UNIT/ML) 1,000 UNIT in SODIUM CHLORIDE 0.9% 1,000 ML IRRIGATION ONE (10:48)
--- NOTE | 2025-01-11 12:42 | P.PN ---
Subjective Progress Note Date: 01/11/25 HISTORY OF PRESENT ILLNESS: Patient examined this morning at the bedside. Patient currently denies chest pain or pressure. He denies shortness of breath. Telemetry reveals sinus mechanism. Vital signs are stable. 01/08/2025 Patient underwent EP study yesterday revealing SVT. However, there were tech nical issues and RF ablation could not be performed. This has been rescheduled for Saturday. The patient has been restarted on IV Cardizem. Patient currently denies chest pain or pressure. He denies shortness of breath. Vital signs are stable. 01/09/2025 No new cardiovascular events Blood pressure is better controlled on lisinopril Plan for EP study on Saturday01/10/2025 Doing well, no new cardiovascular complaints at this time Blood pressure stable 01/11 Patient seen and examined. He is scheduled for an ablation today with Dr. Ruvalcaba. He is very anxious and excited to have this done. Blood pressure 147/77, heart rate 66, pulse ox 97% on room air. Repeat blood work reveals sodium 138, potassium 4.2, BUN 12 and creatinine 0.92. Magnesium 2.0. PHYSICAL EXAM: VITAL SIGNS: Reviewed. GENERAL: Well-developed in no acute distress. NECK: Supple. No JVD or thyromegaly LUNGS: Respirations even and unlabored. Lungs essentially clear to auscultation bilaterally. HEART: Regular rate and rhythm. S1 and S2 heard. EXTREMITIES: Normal range of motion. No clubbing or cyanosis. Peripheral pu lses intact. No lower extremity edema ASSESSMENT: Recurrent SVT Syncope Coronary artery disease with known CARE ASST of the RCA and nonobstructive disease in the LAD and circumflex Diabetes Obesity: BMI 31.0 PLAN: No oral amiodarone, oral beta-blockers, digoxin, or oral calcium channel blockers Continue IV Cardizem lisinopril 10mg daily Patient scheduled for ablation on Saturday, January 11, [address] Ruvalcaba Further recommendations pending patient course Nurse practitioner note has been reviewed, I agree with documented findings and plan of care. Patient was seen and examined. Objective - Vital Signs Vital signs: Vital Signs Temp 98.2 F 01/11/25 04:00 Pulse 70 01/11/25 04:00 Resp 18 01/11/25 04:00 BP 149/75 01/11/25 04:00 Pulse Ox 96 01/11/25 04:00 FiO2 Intake & Output 01/10/25 01/11/25 01/11/25 18:59 06:59 18:59 Intake Total 1020 10 Output Total 2 Balance 1018 10 Weight 106 kg Intake: IV 10 0.9 10 Oral 1020 Output: Stool 2 Other: Voiding Method Toilet Toilet # Voids 1 - Labs CBC & Chem 7: 01/08/25 06:06 01/11/25 05:38 Labs: Abnormal Lab Results - Last 24 Hours (Table) 01/10/25 01/10/25 01/10/25 Range/Units 11:12 15:52 19:50 Glucose (74-99) mg/dL POC Glucose (mg/dL) 113 H 165 H 133 H (70-110) mg/dL 01/11/25 01/11/25 Range/Units 05:38 05:54 Glucose 139 H (74-99) mg/dL POC Glucose (mg/dL) 160 H (70-110) mg/dL
[2025-01-11 12:48] LABS: Glucose,Whole Blood 109 mg/dL (70-110)
[2025-01-11] MEDS ORDERED: ACETAMINOPHEN TAB 325 MG TAB PO PRN (13:04)
--- NOTE | 2025-01-11 13:22 | P.EPPROC ---
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 Written informed consent was obtained prior to the procedure. The right and left groins were prepped and draped as a protocol. Venous sheaths were placed in the right left femoral veins Diagnostic catheters were placed in the high right atrium, His bundle area, coronary sinus and right ventricle A detailed EP study was performed Sinus cycle length 780 ms, PA interval 267 ms, QRS 95 and QT interval 345 ms AH 114 ms and HV interval 50 ms Sinus node recovery time at a pacing cycle length of 600 ms was 1338 ms. Prolonged corrected sinus node recovery times VA Wenckebach block 460 ms Walter response to Para-Hisian pacing AV node Wenckebach block 580 ms in the baseline wakeful state Burst stimulation from the high right atrium induced and echo beat On Isopril: AV node Wenckebach block 350 ms VA Wenckebach block 280 ms Atrial extra stimulation was performed from the high right atrium and from the coronary sinus Ventricular extrastimulation was performed Burst stimulation was performed SVT was induced This was consistent with AV walter reentry with a VAV response following ventricular overdrive pacing 3D electroanatomic mapping was performed The hiss cloud was mapped The coronary sinus was mapped The coronary sinus os and roof were tagged Tricuspid annulus was tagged However on account of technical reasons in the lab, we could not proceed with ablation at this point All catheters were removed Issues discussed with the family Closure devices, Mynx used Plan was to bring the patient back the following week for ablation of slow pathway
--- NOTE | 2025-01-11 13:27 | P.EPPROC ---
- EP Procedure Note Electrophysiology Procedure Note: Diagnosis Incessant AV reena reentry Final diagnosis AV reena reentry Prolonged MO interval at baseline Successful ablation for AV reena reentry Patient was brought to the EP lab in a fasting state. 3 venous sheaths were placed via the femoral veins and a long sheath and the mapping and ablation catheter was placed RV catheter was placed Coronary sinus catheter was placed 3D electroanatomic mapping was performed Hiss cloud was tach Coronary sinus ostium roof were tagged RF ablation was performed just outside the coronary sinus os anteriorly and inferiorly Junctional rhythm was obtained Short lesions with good contact force were applied MO interval remained stable without any prolongation without any prolongation All catheters were removed the end of the procedure Hemostasis was assured Plan If the patient has any further episodes of SVT, given the antegrade conduction of the fast pathway and the baseline prolonged MO interval I would recommend implantation of permanent pacemaker followed by ablation
[2025-01-11] MEDS: ACETAMINOPHEN IV (For NPO) 1,000 MG in EMPTY BAG 1 BAG IVPB ONE (14:10)
[2025-01-11] MEDS: APIXABAN 5 MG TAB PO SCH (14:11)
[2025-01-11 16:30] LABS: Glucose,Whole Blood 174 mg/dL (70-110)
--- NOTE | 2025-01-11 19:30 | P.PN ---
Subjective Progress Note Date: 01/11/25 This is a 64-year-old male who was recently admitted with recurrent SVT being followed by cardiology closely. Adjustments to medications being made and patient is scheduled to undergo EP study with Dr. Ruvalcaba and possible ablation today. Will await official report. Patient remains on telemetry monitoring on IV Cardizem and adjustments to medications will be made per cardiology. Will discuss further with cardiology regarding discharge planning hopefully in the next few days. Review of systems: Constitutional: No reports of fatigue, fever, or chills Cardiovascular: No reports of chest pain or palpitations Respiratory: No reports of shortness of breath or cough GI: No reports of nausea, no reports of vomiting, no diarrhea : No reports of dysuria or retention Neurovascular: No reports of generalized weakness All medications have been reviewed PHYSICAL EXAMINATION: GENERAL: The patient is alert and oriented x4, Well developed, well nourished. Obese HEENT: Pupils are round and equally reacting to light. EOMI. no scleral icterus. No conjunctival pallor. Normocephalic, atraumatic. No pharyngeal erythema. No thyromegaly. CARDIOVASCULAR: S1 and S2 muffled, irregular PULMONARY: diminished breath sounds bilaterally with no wheezing or rhonchi noted. ABDOMEN: soft. Nontender on exam. obese. non-distended, normoactive bowel sounds. No palpable organomegaly. MUSCULOSKELETAL: No joint swelling or deformity. EXTREMITIES: No cyanosis, clubbing, or pedal edema. NEUROLOGICAL: Gross neurological examination did not reveal any focal deficits. SKIN: No rashes. Assessment: Recurrence of SVT for EP studies today 01/11/2025 Diabetes mellitus, type II Hypertension Obesity with a BMI of 30.0 GI prophylaxis DVT prophylaxis Full code Plan: Recommend to continue with current medications and management with cardiology following closely. Patient is scheduled for EP studies today 01/11/2025 and will await official report Continue monitoring Accu-Cheks AC and at bedtime and will adjust insulins accordingly Continue telemetry monitoring Medications to be adjusted per cardiology Will follow-up on repeat labs To discuss further with cardiology regarding discharge planning possibly in the next 24 to 48 hours. Overall prognosis is guarded The impression and plan of care has been dictated by Cinthya Álvarez, nurse practitioner as directed. Dr. Alex MD I have performed a history and examination and MDM of this patient, discussed the same with the dictator, and agree with the dictator's assessment and plan as written ,documented as a scribe. Based on total visit time, I have performed more than 50% of the visit. Any additional findings or plans will be noted. Objective - Vital Signs Vital signs: Vital Signs Temp 97.8 F 01/11/25 12:47 Pulse 64 01/11/25 13:49 Resp 18 01/11/25 13:49 BP 129/68 01/11/25 13:49 Pulse Ox 96 01/11/25 13:49 FiO2 Intake & Output 01/10/25 01/11/25 01/11/25 18:59 06:59 18:59 Intake Total 1020 10 610 Output Total 2 Balance 1018 10 610 Weight 106 kg 106 kg Intake: IV 10 370 0.9 10 Oral 1020 240 Output: Stool 2 Other: Voiding Method Toilet Toilet # Voids 1 - Labs CBC & Chem 7: 01/08/25 06:06 01/11/25 05:38 Labs: Abnormal Lab Results - Last 24 Hours (Table) 01/10/25 01/10/25 01/11/25 Range/Units 15:52 19:50 05:38 Glucose 139 H (74-99) mg/dL POC Glucose (mg/dL) 165 H 133 H (70-110) mg/dL 01/11/25 01/11/25 Range/Units 05:54 08:42 Glucose (74-99) mg/dL POC Glucose (mg/dL) 160 H 136 H (70-110) mg/dL
[2025-01-11 20:07] LABS: Glucose,Whole Blood 140 mg/dL (70-110)
[2025-01-12 06:03] LABS: Glucose,Whole Blood 151 mg/dL (70-110)
[2025-01-12 10:33] VITALS: RESP 16
[2025-01-12 12:03] LABS: Glucose,Whole Blood 135 mg/dL (70-110)
[2025-01-12 13:51] VITALS: BMI 30.3
[2025-01-12 16:06] VITALS: BP 161/80; PULSE 56; TEMP 98.1
--- NOTE | 2025-01-13 07:14 | P.PN ---
Subjective Progress Note Date: 01/12/25 HISTORY OF PRESENT ILLNESS: Patient examined this morning at the bedside. Patient currently denies chest pain or pressure. He denies shortness of breath. Telemetry reveals sinus mechanism. Vital signs are stable. 01/08/2025 Patient underwent EP study yesterday revealing SVT. However, there were tech nical issues and RF ablation could not be performed. This has been rescheduled for Saturday. The patient has been restarted on IV Cardizem. Patient currently denies chest pain or pressure. He denies shortness of breath. Vital signs are stable. 01/09/2025 No new cardiovascular events Blood pressure is better controlled on lisinopril Plan for EP study on Saturday01/10/2025 Doing well, no new cardiovascular complaints at this time Blood pressure stable 01/11 Patient seen and examined. He is scheduled for an ablation today with Dr. Ruvalcaba. He is very anxious and excited to have this done. Blood pressure 147/77, heart rate 66, pulse ox 97% on room air. Repeat blood work reveals sodium 138, potassium 4.2, BUN 12 and creatinine 0.92. Magnesium 2.0. 01/12 Yesterday, patient underwent successful ablation with Dr. Ruvalcaba. Today he has been ambulating in the hallways, no chest pain, no palpitations, no lightheadedness or dizziness. Blood pressure 137/70, heart rate between 59 and 69, pulse ox 97% on room air. PHYSICAL EXAM: VITAL SIGNS: Reviewed. GENERAL: Well-developed in no acute distress. NECK: Supple. No JVD or thyromegaly LUNGS: Respirations even and unlabored. Lungs essentially clear to auscultation bilaterally. HEART: Regular rate and rhythm. S1 and S2 heard. EXTREMITIES: Normal range of motion. No clubbing or cyanosis. Peripheral pulses intact. 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 Nurse practitioner note has been reviewed, I agree with documented findings and plan of care. Patient was seen and examined. Objective - Vital Signs Vital signs: Vital Signs Temp 98.1 F 01/12/25 03:55 Pulse 69 01/12/25 03:55 Resp 19 01/12/25 03:55 BP 137/70 01/12/25 03:55 Pulse Ox 97 01/12/25 03:55 FiO2 Intake & Output 01/11/25 01/12/25 01/12/25 18:59 06:59 18:59 Intake Total 850 Balance 850 Weight 106 kg 107.2 kg Intake: IV 370 Oral 480 Other: Voiding Method Toilet # Voids 3 - Labs CBC & Chem 7: 01/08/25 06:06 01/11/25 05:38 Labs: Abnormal Lab Results - Last 24 Hours (Table) 01/11/25 01/11/25 01/12/25 Range/Units 16:28 20:06 06:02 POC Glucose (mg/dL) 174 H 140 H 151 H (70-110) mg/dL
--- NOTE | 2025-01-13 10:15 | P.DS ---
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 Patient will follow-up with Dr. Bolivar in the outpatient setting upon discharge. Patient is to continue with current medications and Eliquis for 2 weeks per cardiology and close outpatient follow-up with cardiology as scheduled. Total time taken is greater than 35 minutes. Hospital course This is a 64-year-old male who was recently admitted with recurrent SVT status post cardiac evaluation. Patient was evaluated by Dr. Ruvalcaba and is status post EP study with successful ablation. Patient per cardiology will continue on Eliquis twice daily and will need follow-up with cardiology in 1 week. Patient has been cleared by consultation reports to feeling well and would like to go home. Please refer to cardiology consultation notes for further HPI. Currently no reports of chest pain, shortness of breath, or palpitations. Patient is afebrile. No reports of nausea or vomiting and patient is tolerating diet. Patient will be discharged home today. Physical exam: Gen: This is a 64-year-old male who is awake, alert and oriented x 3, well- developed, obese HEENT: Head is atraumatic, normocephalic. Pupils equal, round. Sclerae is anicteric. NECK: Supple. No JVD. No lymphadenopathy. No thyromegaly. LUNGS: Diminished breath sounds bilaterally otherwise clear to auscultation. No wheezes or rhonchi. No intercostal retractions. HEART: S1, S2 are muffled ABDOMEN: Soft. Obese bowel sounds are present. No masses. No tenderness. EXTREMITIES: No pedal edema. No calf tenderness. NEUROLOGICAL: Patient is awake, alert and oriented x3. Cranial nerves 2 through 12 are grossly intact. Please refer to medication reconciliation sheet for a list of medications. The impression and plan of care has been dictated by Cinthya Álvarez, Nurse Practitioner as directed. Dr Johnson. MD I have performed a history and examination and MDM of this patient, discussed the same with the dictator, and agree with the dictator's assessment and plan as written ,documented as a scribe. Based on total visit time, I have performed more than 50% of the visit. Patient Condition at Discharge: Good Plan - Discharge Summary Discharge Rx Participant: No New Discharge Prescriptions: New Apixaban [Eliquis] 5 mg PO BID #14 tab Acetaminophen Tab [Tylenol] 650 mg PO Q6HR PRN tab PRN Reason: Mild Pain Or Fever > 100.5 Apixaban [Eliquis] 5 mg PO BID 14 Days #28 tab Continue glyBURIDE/METFORMIN HCL [Glucovance 5-500 mg] 2 tab PO BID lisinopriL [Zestril] 10 mg PO DAILY Insulin Degludec [Tresiba Flextouch U-100 Pen] 55 units SQ HS Atorvastatin [Lipitor] 20 mg PO DAILY Discontinued Metoprolol Succinate (ER) [Toprol Xl] 25 mg PO DAILY #90 tab Discharge Medication List glyBURIDE/METFORMIN HCL [Glucovance 5-500 mg] 2 tab PO BID 04/01/24 [History] Atorvastatin [Lipitor] 20 mg PO DAILY 01/04/25 [History] Insulin Degludec [Tresiba Flextouch U-100 Pen] 55 units SQ HS 01/04/25 [History] lisinopriL [Zestril] 10 mg PO DAILY 01/04/25 [History] Apixaban [Eliquis] 5 mg PO BID #14 tab 01/11/25 [Rx] Acetaminophen Tab [Tylenol] 650 mg PO Q6HR PRN tab 01/12/25 [Rx] Apixaban [Eliquis] 5 mg PO BID 14 Days #28 tab 01/12/25 [Rx] Follow up Appointment(s)/Referral(s): Mike Gregory DO [STAFF PHYSICIAN] - 01/22/25 7:45 am Sp Bolivar MD [Primary Care Provider] - 01/15/25 10:30 am (with Catarino, please bring discharge paper work and all medications to appointment ) Patient Instructions/Handouts: Cardiac Ablation (DC) Activity/Diet/Wound Care/Special Instructions: Post EP study - Ablation instructions 1. Keep access sites dry for 2 days. 2. No heavy lifting or straining for 2 days. 3. Avoid bending the hips repeatedly for 2 days. 4. You may go up and down stairs slowly 5. If you have had an ablation for atrial fibrillation or atrial flutter and are on a blood thinner, do not stop the blood thinner even temporarily for 3 months post ablation Call if the following is noted 1. Bleeding, increasing swelling or pain at the access sites. 2. Increasing chest discomfort, especially upon taking a deep breath. 3. Increasing shortness of breath, at rest or with exertion. 4. Undue cough / phlegm 5. Difficulty or pain while swallowing. 6. Pain or change in color in the extremities. 7. Fever, chills, rigors. 8. Increasing headache or neurologic symptoms. 9. Dizziness, fainting, palpitations Stop metoprolol completely Eliquis 5 mg twice daily for 2 weeks only post SVT ablation for DVT prophylaxis Stop after 2 weeks Continue lisinopril Follow-up with Dr. Gregory in 1 week Discharge Disposition: HOME SELF-CARE
== END 2025-01-12 15:55 | disposition home or self-care (01) | DRG 274 ==
LOC: EC 02:19 → 6NMEDSUR 06:15 → 3SCARD 09:16 → OBSVTOIN 01-05 08:59 → 3SCARD 01-05 12:03
PROVIDERS: ADMIT Internal Medicine; ATTEND Internal Medicine
PROC: 4A023FZ Measurement of Cardiac Rhythm, Percutaneous Approach (ICD-10-PCS; 2025-01-07)
PROC: 4A0234Z Measurement of Cardiac Electrical Activity, Percutaneous Approach (ICD-10-PCS; 2025-01-07 16:00)
PROC: 02K83ZZ Map Conduction Mechanism, Percutaneous Approach (ICD-10-PCS; 2025-01-11)
PROC: 02583ZZ Destruction of Conduction Mechanism, Percutaneous Approach (ICD-10-PCS; principal; 2025-01-11 09:00)
DX: I47.19 Other supraventricular tachycardia (principal); E03.9 Hypothyroidism, unspecified; E11.9 Type 2 diabetes mellitus without complications; I10 Essential (primary) hypertension; E66.9 Obesity, unspecified; Z79.4 Long term (current) use of insulin; E78.5 Hyperlipidemia, unspecified; I25.10 Atherosclerotic heart disease of native coronary artery without angina pectoris; I25.82 Chronic total occlusion of coronary artery; Z68.31 Body mass index [BMI] 31.0-31.9, adult; I44.0 Atrioventricular block, first degree; I95.1 Orthostatic hypotension; Z79.899 Other long term (current) drug therapy; Z79.84 Long term (current) use of oral hypoglycemic drugs
CPT/HCPCS: 36415; 71046; 80048; 80053; 83735; 84439; 84443; 84481; 84484; 85025; 85379; 85610; 85730; 86850; 86900; 86901; 93005; 93306; 93613; 93620; 93623; 93653; 96361; 96365; 96366; 99285